=== PATIENT | female | born 1990 | race Caucasian/White ===

== ENCOUNTER 2019-07-15 21:34 | Inpatient (IN) | payer MEDICAID ==
[2019-07-15] MEDS ORDERED: Sodium Chloride 0.9% 1,000 ML IV ONE (21:42)
[2019-07-15] MEDS ORDERED: LORazepam 2 MG/ML SDV IVPUSH ONE (21:44)
[2019-07-15] MEDS ORDERED: Labetalol 100 MG/20 ML MDV IVPUSH ONE ×2 (21:45→23:11)
--- NOTE | 2019-07-15 21:59 | CT ---
INDICATION: Weakness and numbness. COMPARISON: None. TECHNIQUE: CT of the head without IV contrast. Coronal and sagittal reconstructions are provided. FINDINGS: No intracranial hemorrhage, mass effect, or evidence of acute infarct. No midline shift. No abnormal extra-axial fluid collections. Normal caliber ventricular system. Orbits and extraocular muscles are symmetric. Mild mucosal thickening in the left maxillary sinus. The paranasal sinuses and mastoid air cells are otherwise clear. No acute fracture. Soft tissues are unremarkable. IMPRESSION: : No acute intracranial findings. Please note that all CT scans at this facility use dose modulation, iterative reconstruction, and/or weight-based dosing when appropriate to reduce radiation dose to as low as reasonably achievable. Dictated by Brooke Joe MD @ Jul 15 2019 9:53PM Signed by Dr. Brooke Joe @ Jul 15 2019 9:59PM
[2019-07-15] MEDS ORDERED: Nitroprusside 50 MG in Dextrose 5% in Water 248 ML IV SCH ×2 (22:30)
[2019-07-15 22:36] LABS: BLOOD UREA NITROGEN,BUN 11 mg/dL (7.0-18.0); CARBON DIOXIDE,CO2 25.8 mmol/L (21.0-32.0); CHLORIDE,CL 102 mmol/L (98-107); GLUCOSE RANDOM 204 mg/dL (74-106); POTASSIUM,K 3.5 mmol/L (3.5-5.1); SODIUM,NA 138 mmol/L (136-145)
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
[2019-07-16] MEDS ORDERED: Labetalol 100 MG/20 ML MDV IVPUSH PRN (02:10)
[2019-07-16] MEDS ORDERED: Lisinopril 10 MG Tab PO ONE (02:11)
[2019-07-16] MEDS ORDERED: Sodium Chloride 0.9% 2.5 ML Syringe FLUSH PRN (02:45)
[2019-07-16] MEDS ORDERED: Sodium Chloride 0.9% 10 ML Syringe FLUSH PRN (02:45)
[2019-07-16] MEDS ORDERED: amLODIPine 5 MG Tab PO ONE (05:28)
[2019-07-16] MEDS ORDERED: Labetalol 100 MG/20 ML MDV IVPUSH ONE (05:29)
[2019-07-16 06:49] LABS: BLOOD UREA NITROGEN,BUN 9 mg/dL (7.0-18.0); CARBON DIOXIDE,CO2 27.1 mmol/L (21.0-32.0); CHLORIDE,CL 105 mmol/L (98-107); GLUCOSE RANDOM 197 mg/dL (74-106); POTASSIUM,K 3.9 mmol/L (3.5-5.1); SODIUM,NA 141 mmol/L (136-145)
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
[2019-07-16 08:32] LABS: HEMOGLOBIN A1C 7.7 % (4.5-6.2)
[2019-07-16] MEDS ORDERED: Aspirin 81 MG Tab.Chew PO SCH (09:00)
[2019-07-16] MEDS ORDERED: Hydrochlorothiazide 25 MG Tab PO SCH (09:00)
[2019-07-16] MEDS: Insulin Aspart 100 Units/ML 3 ML Pen SUBCUT SCH ×3 (09:17→18:14)
[2019-07-16] MEDS ORDERED: Lisinopril 10 MG Tab PO SCH (09:30)
[2019-07-16] MEDS ORDERED: amLODIPine 5 MG Tab PO SCH (09:30)
[2019-07-16] MEDS ORDERED: Gadobenate Dimeglumine 529 MG/ML 20 ML SDV IVPUSH STA (11:26)
--- NOTE | 2019-07-16 12:41 | US ---
Renal ultrasound with renal arterial Doppler: Multiple real-time images of the kidneys were obtained as well as duplex and color Doppler evaluation of the renal artery. Findings: Kidneys show no hydronephrosis or mass. Right kidney length is 10.4 cm and left kidney length is 12.2 cm. Maximum systolic velocity measurement within the right renal artery is 0.47 m/s and within the left renal artery is 0.80 m/s. Impression: 1. Nothing is appreciated to indicate hemodynamic significant stenosis within either renal artery. 2. Kidneys show no hydronephrosis or discrete mass. Diagnostic code #1 This report was dictated in MDT
--- NOTE | 2019-07-16 14:58 | MR ---
MRI brain (without and with intravenous contrast) Technique: T1 sagittal; T2, T2 FLAIR, T1 and diffusion axial; T1 coronal images were obtained. Postcontrast T1 axial, sagittal and coronal images were reviewed. Comparison: No prior intracranial imaging. Findings: Ventricles along with basal cisterns and sulci over the convexities are within normal limits for the patient's age. 2 areas of increased signal are seen within the periventricular white matter. Left parietal white matter signal shows abnormal diffusion which is compatible with an acute finding. No abnormal enhancement is seen within the brain parenchyma. Normal signal void is seen within the major cerebral arteries within the skull base. Impression: 1. 2 areas of increased signal within the periventricular white matter. One area on the left side shows increased diffusion compatible with relatively acute finding. Findings may represent early MS. No abnormal enhancement is seen on the left side and infection or tumor is felt unlikely as an etiology. Early white matter infarct is possible but seems less likely given the patient's age. Diagnostic code #3 This report was dictated in MDT
--- NOTE | 2019-07-16 14:58 | MR ---
MR angiogram of neck (with contrast) Technique: Multiple images were obtained of the neck. Intravenous contrast was utilized. Multiple MIP images were obtained in multiple projections. Findings: Both vertebral arteries are patent with dominant right vertebral artery. Patent smaller left vertebral artery is noted. Common carotid arteries are patent on both sides. Carotid bulbs appear within normal limits on both sides. Internal carotid arteries are patent on both sides. Both brachiocephalic and subclavian arteries are patent. Impression: 1. Innominate right vertebral artery with patent smaller left vertebral artery. 2. Neck vessels are otherwise unremarkable as described above. Diagnostic code #2 This report was dictated in MDT
--- NOTE | 2019-07-16 14:58 | MR ---
MR angiogram of brain Technique: [id number] MR angiogram study was obtained centered to the [place]. Reconstructed MIP images were obtained in multiple planes. Findings: Right vertebral artery is dominant over a small left vertebral artery. This is a normal variant. Basilar artery is patent into the posterior cerebral arteries. Internal carotid arteries are patent into the middle cerebral arteries and anterior cerebral arteries. No focal stenosis is seen. No discrete aneurysm is appreciated. Impression: 1. Dominant right vertebral artery which is a normal variant. 2. MR angiogram study of the brain is unremarkable. Diagnostic code #2 This report was dictated in MDT
[2019-07-16] MEDS ORDERED: Ondansetron 4 MG/2 ML SDV IVPUSH PRN (16:39)
[2019-07-16] MEDS ORDERED: Acetaminophen 325 MG Tab PO PRN (16:39)
--- NOTE | 2019-07-16 17:22 | PCM.SN.2 ---
- Free Text/Narrative Note: Called by the nurse practitioner for MedSurg and ICU. Patient is requiring an LP to rule out MS and stroke. Patient history complete. Consent obtained. Patient positioned sitting on the edge of the bed. Hat, mask, gloves and gown for [employer]. Betadine times 3. Sterile drape. Skin anesthetized with 1% lidocaine at L2-L3. 25g Penc[place] spinal needle passes easily on first attempt. Positive clear CSF. No blood and no parasthesia. 1 cc of fluid drawn off in each of the 4 tubes and sent to the lab. Needle withdrawn. Skin cleansed and bandage applied. Patient tolerated procedure well.
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
[2019-07-16] MEDS ORDERED: atorvaSTATin 40 MG Tab PO SCH (21:00)
--- NOTE | 2019-07-17 06:26 | PCM48HPAN ---
Post Anesthesia Note - EVALUATION WITHIN 48HRS OF ANESTHETIC Vital Signs in Normal Range: Yes Patient Participated in Evaluation: Yes Respiratory Function Stable: Yes Airway Patent: Yes Cardiovascular Function Stable: Yes Hydration Status Stable: Yes Pain Control Satisfactory: Yes Nausea and Vomiting Control Satisfactory: Yes Mental Status Recovered: Yes Vital Signs: Last Vital Signs Temp 36.3 C 07/17/19 04:00 Pulse 88 07/17/19 04:00 Resp 18 07/17/19 04:00 BP 163/95 H 07/17/19 04:00 Pulse Ox 96 07/17/19 04:00 - COMMENTS/OBSERVATIONS Free Text/Narrative:: awaiting MRI and test results
[2019-07-17] MEDS: Insulin Aspart 100 Units/ML 3 ML Pen SUBCUT SCH ×2 (06:36→11:48)
[2019-07-17 06:45] LABS: BLOOD UREA NITROGEN,BUN 11 mg/dL (7.0-18.0); CARBON DIOXIDE,CO2 24.9 mmol/L (21.0-32.0); CHLORIDE,CL 105 mmol/L (98-107); GLUCOSE RANDOM 151 mg/dL (74-106); POTASSIUM,K 3.3 mmol/L (3.5-5.1); SODIUM,NA 140 mmol/L (136-145)
[2019-07-17] MEDS ORDERED: Aspirin 325 MG Tab.EC PO SCH (09:00)
[2019-07-17] MEDS ORDERED: Lisinopril 10 MG Tab PO SCH ×2 (09:00→09:15)
[2019-07-17] MEDS ORDERED: Hydrochlorothiazide 25 MG Tab PO SCH (09:45)
[2019-07-17] MEDS ORDERED: Gadobenate Dimeglumine 529 MG/ML 20 ML SDV IVPUSH STA (09:49)
--- NOTE | 2019-07-17 11:21 | MR ---
MRI lumbar spine (without and with intravenous contrast) Technique: T1, T2 and T1 fat-suppressed postcontrast axial images were obtained from above the T12-L1 disc through the L5-S1 disc. T1, T2, fat suppressed inversion recovery and T1 fat-suppressed postcontrast sagittal images were obtained. Findings: Vertebral body heights and disc spaces are maintained. No significant disc bulge or disc herniation is seen. No abnormal enhancement is seen. No central canal stenosis or neural foraminal stenosis is seen. Conus medullaris and cauda equina show no abnormal signal or mass. No abnormal enhancement is seen. Impression: 1. No abnormality is identified on MRI study of the lumbar spine. Diagnostic code #1 This report was dictated in MDT
--- NOTE | 2019-07-17 11:24 | MR ---
MRI thoracic spine (without and with intravenous contrast) Technique: T2 and T1 fat-suppressed postcontrast axial images were obtained in 2 sets through the thoracic spine. T1, T2, fat suppressed inversion recovery and T1 fat-suppressed postcontrast sagittal images were obtained. Comparison: No prior thoracic spine imaging. Findings: Vertebral body heights and disc spaces are maintained. Posterior discs are preserved. No central canal stenosis or neural foraminal stenosis is seen. Thoracic cord shows no abnormal signal. No abnormal enhancement is seen within the thoracic cord or within the vertebral bodies. No bone marrow edema is identified. Impression: 1. No abnormality is appreciated on MRI study of the thoracic spine. Diagnostic code #1 This report was dictated in MDT
--- NOTE | 2019-07-17 12:18 | MR ---
MRI cervical spine (without and with intravenous contrast) Technique: T2 weighted and FFE axial as well as T1 postcontrast fat-suppressed axial images were obtained from above the C2-3 disc inferiorly through the T1-2 disc. T1, T2, fat suppressed inversion recovery and T1 fat-suppressed postcontrast sagittal images were obtained. Limitations: Motion artifact is noted on multiples sequences. Comparison: No previous cervical spine imaging. Findings: Vertebral body heights and disc spaces are preserved. No central canal stenosis or neural foraminal stenosis is seen. Cervical cord shows no abnormal signal or mass. No abnormal enhancement is seen. Mild scoliosis is noted. Impression: 1. Mild scoliosis. 2. No additional abnormality is seen on MRI study of the cervical spine (study slightly limited due to motion). Diagnostic code #2 This report was dictated in MDT
[2019-07-17] MEDS ORDERED: amLODIPine 5 MG Tab PO SCH (13:45)
--- NOTE | 2019-07-17 14:01 | PCM.DCSUM1 ---
Discharge Summary - Hospital Course Brief History: This 29 year old female with no significant pmh except for migraines without aura presented to the ED with complaints of R sided weakness that started at supper. She reports her and her boyfriend were sitting at a restaurant to eat and she felt flushed and like she needed to get some air. She went out to the truck and felt like the R side of her body was tingling and has a numb R face. She felt like her R arm was very heavy and became very panicked. She denies headache, visual concerns. No speech or swallowing concerns. She felt like her R leg was very heavy, but denies trouble walking, but feels off when walking. She denied chest pain or palpitations. No abdominal pain or dysuria. No fevers or chills. She otherwise has been feeling well prior to this. She denies travel. She denies tobacco use, no alcohol use and no recreational drug use. She is not aware of family health history. In the ED no leukocytosis noted. Hgb 10.8 BMP WNL other than glucose elevated at 204, Troponin negative. TSH 1.[address] obtained which was negative. Blood pressure extremely elevated 230/110s, she was started on Nitroprusside drip in the ED which normlaized BP quickly. She was admitted for hypertensive emergency and monitored on Telemetry. Diagnosis: Stroke: No - Discharge Data Discharge Date: 07/17/19 Discharge Disposition: Home, Self-Care 01 Condition: Good - Referral to Home Health Primary Care Physician: PCP None - Discharge Diagnosis/Problem(s) (1) Right sided weakness SNOMED Code(s): 404817818 ICD Code: R53.1 - WEAKNESS Status: Acute (2) Hx of migraines SNOMED Code(s): 934312901 ICD Code: Z86.69 - PERSONAL HISTORY OF DIS OF THE NERVOUS SYS AND SENSE ORGANS Status: Acute (3) Hypertensive urgency SNOMED Code(s): 003087591 ICD Code: I16.0 - HYPERTENSIVE URGENCY Status: Acute (4) CVA (cerebral vascular accident) SNOMED Code(s): 329532159 ICD Code: I63.9 - CEREBRAL INFARCTION, UNSPECIFIED Status: Suspected Qualifiers: Laterality of affected vessel: left - Patient Summary/Data Consults: Consultations 07/16/19 08:35 OT Evaluation and Treatment [CONS] Routine PT Evaluation and Treatment [CONS] Routine 07/16/19 11:40 Consult to [employer] [Consult to Diabetic Nurse Specialist] [CONS] Routine Hospital Course: admitting Diagnoses: R sided weakness HTN urgency Discharge Diagnoses: Suspected CVA vs MS HTN DM Type 2 Maria Del Carmen was admitted secondary to R sided weakness which started suddenly, on admission she was noted to have HTN urgency along with R sided weakness. Head CT negative further imaging including MRI showed possible infarct vs MS. Dr Pickard, Neurology, reviewed imaging and agreed with CVA workup and treatment , but recommended LP for MS workup as well as imaging of spine. LP studies and hypercoagulable work up pending as well. Family has history of blood clots causing significant health concerns. BP was controlled with Lisinopril HCTZ and Amlodipine. She was also noted to have new onset DM. She was counseled on blood sugar control. She was also started on Metformin as well as ASA and statin therapy. She was evaluated by PT and OT. OT therapy as outpatient as well for R upper extremity weakness. She will be discharged home today, she will have follow up with PCP and Dr Pickard. She is to return to ED or clinic if concerns should arise. - Patient Instructions Diet: Heart Healthy Diet, Diabetic Diet Activity: No Strenuous Activities Driving: Do Not Drive Showering/Bathing: May Shower Notify Provider of: Fever, Increased Pain, Swelling and Redness, Drainage, Nausea and/or Vomiting Other/Special Instructions: Occupational therapy as outpatient for R arm weakness. Monitor Blood pressure at home, if top number below 100, call primary care provider. Hold medications for that day. Keep log of Blood pressures at home to bring to follow up appointments. - Discharge Plan *PRESCRIPTION DRUG MONITORING PROGRAM REVIEWED*: Not Applicable *COPY OF PRESCRIPTION DRUG MONITORING REPORT IN PATIENT JOY: Not Applicable Prescriptions/Med Rec: amLODIPine Besylate [Norvasc] 10 mg PO DAILY #30 tablet Aspirin [Ecotrin EC] 325 mg PO DAILY #100 tab.ec atorvaSTATin [Lipitor] 80 mg PO BEDTIME #60 tablet Hydrochlorothiazide/Lisinopril [Lisinopril-HCTZ 20-12.5 MG] 2 tab PO DAILY #60 tab metFORMIN HCl [Metformin HCl] 500 mg PO DAILY #30 tablet Home Medications: Home Meds Aspirin [Ecotrin EC] 325 mg PO DAILY #100 tab.ec 07/17/19 [Rx] Hydrochlorothiazide/Lisinopril [Lisinopril-HCTZ 20-12.5 MG] 2 tab PO DAILY #60 tab 07/17/19 [Rx] amLODIPine Besylate [Norvasc] 10 mg PO DAILY #30 tablet 07/17/19 [Rx] atorvaSTATin [Lipitor] 80 mg PO BEDTIME #60 tablet 07/17/19 [Rx] metFORMIN HCl [Metformin HCl] 500 mg PO DAILY #30 tablet 07/17/19 [Rx] Patient Handouts: Stroke Prevention, Obiw-eb-[id number], Weakness, Nori-ff-Hiwt, Ischemic Stroke, Lobm-bu-Hyqz, Hydrochlorothiazide, HCTZ; Lisinopril tablets, Hypertension, Adult, Jwsh-[id number], Atorvastatin tablets, Amlodipine tablets, Metformin tablets, Aspirin, ASA oral tablets Referrals: Aria Pickard MD [Physician] - 07/26/19 10:00 am Ya Medrano MD [Resident] - 07/25/19 2:30 pm - Discharge Summary/Plan Comment DC Time >30 min.: No - Patient Data Vitals - Most Recent: Last Vital Signs Temp 98.2 F 07/17/19 11:33 Pulse 93 07/17/19 11:33 Resp 16 07/17/19 11:33 BP 173/108 H 07/17/19 11:33 Pulse Ox 97 07/17/19 11:33 Weight - Most Recent: 88.6 kg I&O - Last 24 hours: Intake & Output 07/16/19 07/17/19 07/17/19 22:59 06:59 14:59 Intake Total 700 1350 Output Total 1750 1850 Balance -1050 -500 Lab Results - Last 24 hrs: Laboratory Results - last 24 hr 07/16/19 07/16/19 07/16/19 Range/Units 17:07 17:07 18:02 WBC (4.0-11.0) K/uL RBC (4.30-5.90) M/uL Hgb (12.0-16.0) g/dL Hct (36.0-46.0) % MCV (80.0-98.0) fL MCH (27.0-32.0) pg MCHC (31.0-37.0) g/dL RDW Std Deviation (28.0-62.0) fl RDW Coeff of Dequan (11.0-15.0) % Plt Count (150-400) K/uL MPV (7.40-12.00) fL Neut % (Auto) (48.0-80.0) % Lymph % (Auto) (16.0-40.0) % [place]ud[place]eth % (Auto) (0.0-15.0) % Eos % (Auto) (0.0-7.0) % Baso % (Auto) (0.0-1.5) % Neut # (Auto) (1.4-5.7) K/uL Lymph # (Auto) (0.6-2.4) K/uL Hudspeth # (Auto) (0.0-0.8) K/uL Eos # (Auto) (0.0-0.7) K/uL Baso # (Auto) (0.0-0.1) K/uL Nucleated RBC % /100WBC Nucleated RBCs # K/uL Smear Path Review Absolute Retic (20-80) K/uL Percent Retic (0.5-1.5) % Immature Retic Fraction % Sodium (136-145) mmol/L Potassium (3.5-5.1) mmol/L Chloride (98-107) mmol/L Carbon Dioxide (21.0-32.0) mmol/L BUN (7.0-18.0) mg/dL Creatinine (0.6-1.0) mg/dL Est Cr Clr Drug Dosing mL/min Estimated GFR (MDRD) ml/min Glucose (74-106) mg/dL POC Glucose 137 H (60-110) mg/dL Calcium (8.5-10.1) mg/dL Iron (50-175) ug/dL TIBC (250-450) ug/dL % Saturation (20-55) % Transferrin Ferritin (8-252) ng/mL Vitamin B12 (193-986) pg/mL Folate (8.60-58.90) ng/mL CSF Appearance CLEAR CSF Color COLORLESS CSF WBC 1 (0-5) /uL CSF RBC 9 H (0-0) /uL CSF Mononuclear Cells 100.0 % CSF Polymorphonuclear 0.0 % CSF Glucose 93.0 H (40-70) mg/dL CSF Total Protein 37 (15-45) mg/dL 07/17/19 07/17/19 07/17/19 Range/Units 06:00 06:00 06:00 WBC 9.83 (4.0-11.0) K/uL RBC 4.72 4.67 (4.30-5.90) M/uL Hgb 9.8 L (12.0-16.0) g/dL Hct 33.6 L (36.0-46.0) % MCV 71.2 L (80.0-98.0) fL MCH 20.8 L (27.0-32.0) pg MCHC 29.2 L (31.0-37.0) g/dL RDW Std Deviation 39.7 (28.0-62.0) fl RDW Coeff of Dequan 15 (11.0-15.0) % Plt Count 270 (150-400) K/uL MPV 10.30 (7.40-12.00) fL Neut % (Auto) 68.1 (48.0-80.0) % Lymph % (Auto) 21.4 (16.0-40.0) % Hudspeth % (Auto) 9.2 (0.0-15.0) % Eos % (Auto) 1.2 (0.0-7.0) % Baso % (Auto) 0.1 (0.0-1.5) % Neut # (Auto) 6.7 H (1.4-5.7) K/uL Lymph # (Auto) 2.1 (0.6-2.4) K/uL Hudspeth # (Auto) 0.9 H (0.0-0.8) K/uL Eos # (Auto) 0.1 (0.0-0.7) K/uL Baso # (Auto) 0.0 (0.0-0.1) K/uL Nucleated RBC % 0.0 /100WBC Nucleated RBCs # 0 K/uL Smear Path Review Absolute Retic 86.40 H (20-80) K/uL Percent Retic 1.9 H (0.5-1.5) % Immature Retic Fraction 26 % Sodium 140 (136-145) mmol/L Potassium 3.3 L (3.5-5.1) mmol/L Chloride 105 (98-107) mmol/L Carbon Dioxide 24.9 (21.0-32.0) mmol/L BUN 11 (7.0-18.0) mg/dL Creatinine 0.8 (0.6-1.0) mg/dL Est Cr Clr Drug Dosing 92.53 mL/min Estimated GFR (MDRD) > 60.0 ml/min Glucose 151 H (74-106) mg/dL POC Glucose (60-110) mg/dL Calcium 8.4 L (8.5-10.1) mg/dL Iron (50-175) ug/dL TIBC (250-450) ug/dL % Saturation (20-55) % Transferrin Ferritin (8-252) ng/mL Vitamin B12 (193-986) pg/mL Folate (8.60-58.90) ng/mL CSF Appearance CSF Color CSF WBC (0-5) /uL CSF RBC (0-0) /uL CSF Mononuclear Cells % CSF Polymorphonuclear % CSF Glucose (40-70) mg/dL CSF Total Protein (15-45) mg/dL 07/17/19 07/17/19 07/17/19 Range/Units 06:00 06:00 06:00 WBC (4.0-11.0) K/uL RBC (4.30-5.90) M/uL Hgb (12.0-16.0) g/dL Hct (36.0-46.0) % MCV (80.0-98.0) fL MCH (27.0-32.0) pg MCHC (31.0-37.0) g/dL RDW Std Deviation (28.0-62.0) fl RDW Coeff of Dequan (11.0-15.0) % Plt Count (150-400) K/uL MPV (7.40-12.00) fL Neut % (Auto) (48.0-80.0) % Lymph % (Auto) (16.0-40.0) % Hudspeth % (Auto) (0.0-15.0) % Eos % (Auto) (0.0-7.0) % Baso % (Auto) (0.0-1.5) % Neut # (Auto) (1.4-5.7) K/uL Lymph # (Auto) (0.6-2.4) K/uL Hudspeth # (Auto) (0.0-0.8) K/uL Eos # (Auto) (0.0-0.7) K/uL Baso # (Auto) (0.0-0.1) K/uL Nucleated RBC % /100WBC Nucleated RBCs # K/uL Smear Path Review SENT TO PATHOLOGY Absolute Retic (20-80) K/uL Percent Retic (0.5-1.5) % Immature Retic Fraction % Sodium (136-145) mmol/L Potassium (3.5-5.1) mmol/L Chloride (98-107) mmol/L Carbon Dioxide (21.0-32.0) mmol/L BUN (7.0-18.0) mg/dL Creatinine (0.6-1.0) mg/dL Est Cr Clr Drug Dosing mL/min Estimated GFR (MDRD) ml/min Glucose (74-106) mg/dL POC Glucose (60-110) mg/dL Calcium (8.5-10.1) mg/dL Iron 22 L (50-175) ug/dL TIBC 395 (250-450) ug/dL % Saturation 5.57 L (20-55) % Transferrin 276.5 Ferritin 3 L (8-252) ng/mL Vitamin B12 301 (193-986) pg/mL Folate 12.20 (8.60-58.90) ng/mL CSF Appearance CSF Color CSF WBC (0-5) /uL CSF RBC (0-0) /uL CSF Mononuclear Cells % CSF Polymorphonuclear % CSF Glucose (40-70) mg/dL CSF Total Protein (15-45) mg/dL 07/17/19 07/17/19 Range/Units 06:03 11:48 WBC (4.0-11.0) K/uL RBC (4.30-5.90) M/uL Hgb (12.0-16.0) g/dL Hct (36.0-46.0) % MCV (80.0-98.0) fL MCH (27.0-32.0) pg MCHC (31.0-37.0) g/dL RDW Std Deviation (28.0-62.0) fl RDW Coeff of Dequan (11.0-15.0) % Plt Count (150-400) K/uL MPV (7.40-12.00) fL Neut % (Auto) (48.0-80.0) % Lymph % (Auto) (16.0-40.0) % Hudspeth % (Auto) (0.0-15.0) % Eos % (Auto) (0.0-7.0) % Baso % (Auto) (0.0-1.5) % Neut # (Auto) (1.4-5.7) K/uL Lymph # (Auto) (0.6-2.4) K/uL Hudspeth # (Auto) (0.0-0.8) K/uL Eos # (Auto) (0.0-0.7) K/uL Baso # (Auto) (0.0-0.1) K/uL Nucleated RBC % /100WBC Nucleated RBCs # K/uL Smear Path Review Absolute Retic (20-80) K/uL Percent Retic (0.5-1.5) % Immature Retic Fraction % Sodium (136-145) mmol/L Potassium (3.5-5.1) mmol/L Chloride (98-107) mmol/L Carbon Dioxide (21.0-32.0) mmol/L BUN (7.0-18.0) mg/dL Creatinine (0.6-1.0) mg/dL Est Cr Clr Drug Dosing mL/min Estimated GFR (MDRD) ml/min Glucose (74-106) mg/dL POC Glucose 148 H 138 H (60-110) mg/dL Calcium (8.5-10.1) mg/dL Iron (50-175) ug/dL TIBC (250-450) ug/dL % Saturation (20-55) % Transferrin Ferritin (8-252) ng/mL Vitamin B12 (193-986) pg/mL Folate (8.60-58.90) ng/mL CSF Appearance CSF Color CSF WBC (0-5) /uL CSF RBC (0-0) /uL CSF Mononuclear Cells % CSF Polymorphonuclear % CSF Glucose (40-70) mg/dL CSF Total Protein (15-45) mg/dL Med Orders - Current: Current Medications Acetaminophen (Tylenol) 650 mg PO Q4H PRN PRN Reason: Pain (Mild 1-3)/fever Amlodipine Besylate (Norvasc) 10 mg PO DAILY [facility] Aspirin (Ecotrin) 325 mg PO DAILY [facility] Last Admin: 07/17/19 09:21 Dose: 325 mg Atorvastatin Calcium (Lipitor) 80 mg PO BEDTIME [facility] Last Admin: 07/16/19 20:02 Dose: 80 mg Hydrochlorothiazide (Hydrochlorothiazide) 25 mg PO DAILY [facility] Last Admin: 07/17/19 09:49 Dose: 25 mg Insulin Aspart (Novolog) 0 unit SUBCUT TIDAC [facility]; Protocol Last Admin: 07/17/19 11:48 Dose: Not Given Labetalol HCl (Normodyne) 20 mg IVPUSH Q4H PRN PRN Reason: Hypertension Last Admin: 07/16/19 02:28 Dose: 20 mg Lisinopril (Prinivil) 40 mg PO DAILY [facility] Last Admin: 07/17/19 09:22 Dose: 40 mg Ondansetron HCl (Zofran) 4 mg IVPUSH Q4H PRN PRN Reason: Nausea Sodium Chloride (Saline Flush) 10 ml FLUSH ASDIRECTED PRN PRN Reason: Keep Vein Open Sodium Chloride (Saline Flush) 2.5 ml FLUSH ASDIRECTED PRN PRN Reason: Keep Vein Open Discontinued Medications Amlodipine Besylate (Norvasc) 10 mg PO ONETIME ONE Stop: 07/16/19 05:29 Last Admin: 07/16/19 05:35 Dose: 10 mg Amlodipine Besylate (Norvasc) 10 mg PO DAILY [facility] Last Admin: 07/16/19 09:00 Dose: Not Given Aspirin (Aspirin) 81 mg PO DAILY [facility] Last Admin: 07/16/19 09:15 Dose: 81 mg Gadobenate Dimeglumine (Multihance) 20 ml IVPUSH ONETIME STA Stop: 07/16/19 11:27 Last Admin: 07/16/19 12:59 Dose: 17 ml Gadobenate Dimeglumine (Multihance) 20 ml IVPUSH ONETIME STA Stop: 07/17/19 09:50 Last Admin: 07/17/19 10:12 Dose: 17 ml Hydrochlorothiazide (Hydrochlorothiazide) 25 mg PO DAILY [facility] Sodium Chloride (Normal Saline) 1,000 mls @ 1,000 mls/hr IV .Bolus ONE Stop: 07/15/19 22:41 Last Admin: 07/15/19 22:09 Dose: 1,000 mls/hr Sodium Nitroprusside 50 mg/ (Dextrose/Water) 250 mls @ 79.74 mls/hr IV TITRATE JIMMIE; Protocol Last Titration: 07/16/19 01:05 Dose: 0 mcg/kg/min, 0 mls/hr Labetalol HCl (Normodyne) 20 mg IVPUSH ONETIME ONE; Protocol Stop: 07/15/19 21:46 Last Admin: 07/15/19 22:03 Dose: 20 mg Labetalol HCl (Normodyne) 10 mg IVPUSH ONETIME ONE; Protocol Stop: 07/15/19 23:12 Last Admin: 07/15/19 23:12 Dose: 10 mg Labetalol HCl (Normodyne) 10 mg IVPUSH ONETIME ONE; Protocol Stop: 07/16/19 05:30 Last Admin: 07/16/19 05:35 Dose: 10 mg Lisinopril (Prinivil) 20 mg PO ONETIME ONE Stop: 07/16/19 02:12 Last Admin: 07/16/19 02:39 Dose: 20 mg Lisinopril (Prinivil) 20 mg PO DAILY [facility]IMMIE Lisinopril (Prinivil) 40 mg PO DAILY [facility]IM[facility] Last Admin: 07/16/19 09:00 Dose: Not Given Lorazepam (Ativan) 1 mg IVPUSH ONETIME ONE Stop: 07/15/19 21:45 Last Admin: 07/15/19 21:59 Dose: 1 mg - Exam General: Reports: Alert, Oriented, Cooperative, No Acute Distress Lungs: Reports: Clear to Auscultation, Normal Respiratory Effort Cardiovascular: Reports: Regular Rate, Regular Rhythm GI/Abdominal Exam: Normal Bowel Sounds, Soft, Non-Tender Back Exam: Reports: Normal Inspection, Full Range of Motion Extremities: Normal Inspection, Normal Range of Motion, Non-Tender Neurological: Denies: Strength Equal Bilateral (R sided arm weakness 2/5) Psy/Mental Status: Reports: Alert, Normal Affect, Normal Mood
--- NOTE | 2019-07-18 14:21 | ECHO ---
EXAM DATE: 07/16/19 PATIENT'S AGE: 29 The ECHO report can be seen in this patient's EMR (Electronic Medical Record) in the REPORTS section. The report has also been scanned into PACS. [email or web address]
== END 2019-07-17 15:30 | disposition home or self-care (01) | DRG 65 ==
LOC: MW.ED 21:34 → MW.ICU 07-16 01:00
PROVIDERS: ADMIT Student in an Organized Health Care Education/Training Program; ATTEND Student in an Organized Health Care Education/Training Program
PROC: 009U3ZX Drainage of Spinal Canal, Percutaneous Approach, Diagnostic (ICD-10-PCS; principal; 2019-07-16)
DX: I63.9 Cerebral infarction, unspecified (principal); I16.1 Hypertensive emergency; G81.91 Hemiplegia, unspecified affecting right dominant side; E11.9 Type 2 diabetes mellitus without complications; G35 Multiple sclerosis; G43.909 Migraine, unspecified, not intractable, without status migrainosus; R29.702 NIHSS score 2; Z86.69 Personal history of other diseases of the nervous system and sense organs
CPT/HCPCS: 36415; 62270; 70450; 70450-26; 70544; 70544-26; 70548; 70548-26; 70553; 70553-26; 72156; 72156-26; 72157; 72157-26; 72158; 72158-26; 80048; 80053; 80061; 81025; 81241; 82607; 82728; 82746; 82945; 82962; 83036; 83550; 83735; 84100; 84157; 84443; 84484; 85025; 85045; 85302; 85303; 85306; 85610; 85611; 85613; 85670; 85730; 85732; 86146; 86147; 88104; 89050; 93005; 93306; 93975; 93975-26; 96361; 96365; 96375; 96376; 97161-GP; 99283; 99285-25; A9270-GY; A9577; J1815-GY; J2060; J3490; J7030; J7060; U0002

== ENCOUNTER 2019-07-18 21:47 | Observation (INO) | payer MEDICAID, OTHER ==
[2019-07-18] MEDS ORDERED: Sodium Chloride 0.9% 10 ML SDV IV PRN (22:03)
[2019-07-18] MEDS ORDERED: Sodium Chloride 0.9% 2.5 ML Syringe FLUSH PRN (22:03)
[2019-07-18] MEDS ORDERED: Sodium Chloride 0.9% 10 ML Syringe FLUSH PRN (22:03)
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
[2019-07-18 22:29] LABS: BLOOD UREA NITROGEN,BUN 21 mg/dL (7.0-18.0); CARBON DIOXIDE,CO2 24.3 mmol/L (21.0-32.0); CHLORIDE,CL 99 mmol/L (98-107); GLUCOSE RANDOM 157 mg/dL (74-106); POTASSIUM,K 3.5 mmol/L (3.5-5.1); SODIUM,NA 137 mmol/L (136-145)
--- NOTE | 2019-07-18 22:53 | CT ---
Head CT Technique: Multiple axial sections through the brain were obtained. Intravenous contrast was not utilized. Comparison: Prior head CT study of 07/15/19. Prior MRI brain of 07/16/19 is also available. Findings: Ventricles along with basal cisterns and sulci over the convexities are within normal limits for the patient's age. Low density finding noted within the left periventricular white matter which correlates to an area of increased signal on previous MRI of 07/16/19. No other abnormal parenchymal densities are seen. No evidence of intracranial hemorrhage. No midline shift or mass-effect is seen. Bone window settings show no acute change within the visualized paranasal sinuses are visualized mastoid sinuses. No acute calvarial finding is seen. Impression: 1. Low density within the left periventricular white matter. This is seen on prior MRI study but not identified on earlier head CT exam. Given this rapid change between the CT exams, white matter infarct versus more aggressive MS (tumefactive) is within the differential. 2. No other abnormality is appreciated on noncontrast head CT study. Diagnostic code #3 This report was dictated in MDT
[2019-07-19] MEDS ORDERED: methylPREDNISolone Sodium Succinate 1,000 MG/8 ML SDV IV ONE ×2 (01:46→03:15)
[2019-07-19] MEDS: atorvaSTATin 40 MG Tab PO SCH ×2 (01:59→09:25)
[2019-07-19] MEDS: Aspirin 325 MG Tab PO SCH ×2 (02:00→09:33)
[2019-07-19] MEDS ORDERED: methylPREDNISolone Sodium Succinate 125 MG/2 ML SDV ONE (02:22)
[2019-07-19] MEDS ORDERED: methylPREDNISolone Sod Succ 1,000 MG in Sodium Chloride 0.9% 100 ML IV ONE ×2 (02:30→03:30)
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
[2019-07-19] MEDS ORDERED: Sodium Chloride 0.9% 1,000 ML IV ONE (08:48)
[2019-07-19 08:57] LABS: CARBON DIOXIDE,CO2 24.5 mmol/L (21.0-32.0); POTASSIUM,K 4.1 mmol/L (3.5-5.1)
[2019-07-19] MEDS ORDERED: HYDROCHLOROTHIAZIDE PO SCH (09:00)
[2019-07-19] MEDS ORDERED: metFORMIN 500 MG Tab PO SCH (09:00)
[2019-07-19] MEDS ORDERED: [UNRECOGNIZED DRUG - OTHER] PO SCH (09:00)
[2019-07-19] MEDS ORDERED: LISINOPRIL PO SCH (09:00)
[2019-07-19] MEDS: Insulin Aspart 100 Units/ML 3 ML Pen SUBCUT SCH ×3 (09:24→17:50)
[2019-07-19] MEDS: amLODIPine 5 MG Tab PO SCH (09:26)
[2019-07-19] MEDS: Aspirin 325 MG Tab.EC PO SCH (09:28)
[2019-07-19] MEDS: Sodium Chloride 0.9% 1,000 ML IV SCH ×2 (14:15→21:30)
[2019-07-19] MEDS ORDERED: atorvaSTATin 40 MG Tab PO SCH (21:00)
[2019-07-19] MEDS ORDERED: methylPREDNISolone Sod Succ 1,000 MG in Sodium Chloride 0.9% 100 ML IV SCH (21:00)
[2019-07-20] MEDS: Sodium Chloride 0.9% 1,000 ML IV SCH (05:32)
[2019-07-20 06:17] LABS: BLOOD UREA NITROGEN,BUN 25 mg/dL (7.0-18.0); CARBON DIOXIDE,CO2 22.2 mmol/L (21.0-32.0); CHLORIDE,CL 106 mmol/L (98-107); GLUCOSE RANDOM 271 mg/dL (74-106); POTASSIUM,K 4.1 mmol/L (3.5-5.1); SODIUM,NA 138 mmol/L (136-145)
[2019-07-20] MEDS: Insulin Aspart 100 Units/ML 3 ML Pen SUBCUT SCH ×2 (07:13→12:02)
[2019-07-20] MEDS: amLODIPine 5 MG Tab PO SCH (08:39)
[2019-07-20] MEDS: atorvaSTATin 40 MG Tab PO SCH (08:39)
[2019-07-20] MEDS: Aspirin 325 MG Tab.EC PO SCH (08:40)
[2019-07-20] MEDS ORDERED: methylPREDNISolone Sod Succ 1,000 MG in Sodium Chloride 0.9% 100 ML IV SCH (12:00)
--- NOTE | 2019-07-20 12:30 | PCM.DCSUM1 ---
Discharge Summary - Hospital Course Brief History: This 29 year old female with pmh of R hand weakness, recently discharge after possible CVA or MS. Workup still pending. She reports last night she started having a change in symptoms, she felt actual numbness to top R lip and to her R hand, which had no happened before. She became scared and came to the ED. SHe has been tkaing BP medications. She reports she got very fatigued with this episode and her boyfriend had to carry her into the house. She denies visual concerns and no chest pain or SOB. No fevers or chills. In the ED leukocytosis noted, along with slight CIERA BUN 21 and Cr 1.3. head CT obtained which showed low density within the left periventricular what matter, which was seen on previous MRI. "given rapid change white matter infarct vs aggressive MR is within the differential". She was given 1000 mg Solumedrol and admitted for observation. Diagnosis: Stroke: No - Discharge Data Discharge Date: 07/20/19 Discharge Disposition: Home, Self-Care 01 Condition: Good - Referral to Home Health Primary Care Physician: PCP None - Discharge Diagnosis/Problem(s) (1) Numbness of right hand SNOMED Code(s): 180790627 ICD Code: R20.0 - ANESTHESIA OF SKIN Status: Acute Current Visit: Yes (2) Hx of migraines SNOMED Code(s): 401789092 ICD Code: Z86.69 - PERSONAL HISTORY OF DIS OF THE NERVOUS SYS AND SENSE ORGANS Status: Acute Current Visit: No (3) Right sided weakness SNOMED Code(s): 949808330 ICD Code: R53.1 - WEAKNESS Status: Acute Current Visit: No (4) Multiple sclerosis SNOMED Code(s): 52376380 ICD Code: G35 - MULTIPLE SCLEROSIS Status: Suspected Current Visit: Yes - Patient Summary/Data Consults: Consultations 07/19/19 01:31 PT Evaluation and Treatment [CONS] Routine 07/19/19 08:52 Consult to Occupational Therapy [OT Evaluation and Treatment] [CONS] Routine Hospital Course: Admitting Diagnoses: R hand parathesia, weakness Discharge Diagnoses: Suspected MS vs CVA Maria Del Carmen was admitted with worsening numbness to R hand, she was recently discharged home with similar symptoms. she has thorough work up for CVA and MS with MRI brain as well as MRA head neck and spine. She also had LP to fully evauate for MS. Dr ho, neurology was consulted over the phone, she reviewed CT from this admission. She agrees with IV Solumedrol x 5 days then taper to PO along with follow up with her. She feels this may be MS, but imaging is not as clear. Awaiting further lab studies which are send outs. She has follow up next week with Dr Ho as well as to setup PCP. She is to continue Amlodipine. Monitor BP, due to CIERA on admission, will hold ASHLEY and HCTZ for now. PCP may need to restart these is pressures remain elevated. SHe is to continue ASA and statin along with metformin. She will return to Hospital Tuesday and Tuesday for infusion therapy then start Tuesday with oral prednisone taper, 60 mg x 2 days, then 40, 30 20, 10 all for 2 days each. then Stop. She is to return to ED or clinic if concerns should arise. OT did evaluate her during her stay and provided exercises. She has outpatient follow up with them as well. - Patient Instructions Diet: Heart Healthy Diet Activity: As Tolerated, No Strenuous Activities, Rest and Relax Today Showering/Bathing: May Shower Notify Provider of: Fever, Increased Pain, Swelling and Redness, Drainage, Nausea and/or Vomiting Other/Special Instructions: Come to ED for IV therapy on Tuesday and Tuesday they will direct you to the Med/Surg floor. Protect IV at home. - Discharge Plan *PRESCRIPTION DRUG MONITORING PROGRAM REVIEWED*: Not Applicable *COPY OF PRESCRIPTION DRUG MONITORING REPORT IN PATIENT JOY: Not Applicable Prescriptions/Med Rec: methylPREDNISolone Sod Succ [Solu-MEDROL] 1,000 mg IV Q24H #2 sdv predniSONE 10 - 60 mg PO .TAPER #32 tab Home Medications: Home Meds Aspirin [Ecotrin EC] 325 mg PO DAILY #100 tab.ec 07/17/19 [Rx] amLODIPine Besylate [Norvasc] 10 mg PO DAILY #30 tablet 07/17/19 [Rx] metFORMIN HCl [Metformin HCl] 500 mg PO DAILY #30 tablet 07/17/19 [Rx] atorvaSTATin [Lipitor] 80 mg PO DAILY 07/19/19 [History] Hydrochlorothiazide/Lisinopril [Lisinopril/HCTZ 20-12.5 MG] 2 tab PO DAILY #60 tab 07/20/19 [Rx] methylPREDNISolone Sod Succ [Solu-MEDROL] 1,000 mg IV Q24H #2 sdv 07/20/19 [Rx] predniSONE 10 - 60 mg PO .TAPER #32 tab 07/20/19 [Rx] Oxygen Therapy Mode: Room Air Patient Handouts: Methylprednisolone Solution for Injection, Prednisone tablets , Paresthesia, [id number] Referrals: Aria Ho MD [Physician] - 07/26/19 10:00 am Ya Medrano MD [Resident] - 07/25/19 2:30 pm - Discharge Summary/Plan Comment DC Time >30 min.: No - Patient Data Vitals - Most Recent: Last Vital Signs Temp 96.9 F 07/20/19 08:00 Pulse 92 07/20/19 08:00 Resp 18 07/20/19 08:00 BP 167/89 H 07/20/19 08:39 Pulse Ox 99 07/20/19 08:00 Weight - Most Recent: 86.228 kg I&O - Last 24 hours: Intake & Output 07/19/19 07/20/19 07/20/19 22:59 06:59 14:59 Intake Total 1480 2128 Output Total 1100 2000 Balance 380 128 Lab Results - Last 24 hrs: Laboratory Results - last 24 hr 07/19/19 07/20/19 07/20/19 Range/Units 17:27 05:25 05:58 Sodium 138 (136-145) mmol/L Potassium 4.1 (3.5-5.1) mmol/L Chloride 106 (98-107) mmol/L Carbon Dioxide 22.2 (21.0-32.0) mmol/L BUN 25 H (7.0-18.0) mg/dL Creatinine 1.0 (0.6-1.0) mg/dL Est Cr Clr Drug Dosing 74.02 mL/min Estimated GFR (MDRD) > 60.0 ml/min Glucose 271 H (74-106) mg/dL POC Glucose 253 H 282 H (60-110) mg/dL Calcium 8.5 (8.5-10.1) mg/dL Magnesium 1.9 (1.8-2.4) mg/dL 07/20/19 Range/Units 11:30 Sodium (136-145) mmol/L Potassium (3.5-5.1) mmol/L Chloride (98-107) mmol/L Carbon Dioxide (21.0-32.0) mmol/L BUN (7.0-18.0) mg/dL Creatinine (0.6-1.0) mg/dL Est Cr Clr Drug Dosing mL/min Estimated GFR (MDRD) ml/min Glucose (74-106) mg/dL POC Glucose 327 H (60-110) mg/dL Calcium (8.5-10.1) mg/dL Magnesium (1.8-2.4) mg/dL Med Orders - Current: Current Medications Amlodipine Besylate (Norvasc) 10 mg PO DAILY [facility] Last Admin: 07/20/19 08:39 Dose: 10 mg Aspirin (Ecotrin) 325 mg PO DAILY [facility] Last Admin: 07/20/19 08:40 Dose: 325 mg Atorvastatin Calcium (Lipitor) 80 mg PO DAILY [facility] Last Admin: 07/20/19 08:39 Dose: 80 mg Sodium Chloride (Normal Saline) 1,000 mls @ 125 mls/hr IV Q8H [facility] Last Admin: 07/20/19 05:32 Dose: 125 mls/hr Methylprednisolone Sodium Succinate 1,000 mg/ Sodium Chloride 108 mls @ 108 mls /hr IV ONETIME [facility] Stop: 07/20/19 12:59 Last Admin: 07/20/19 11:26 Dose: 108 mls/hr Insulin Aspart (Novolog) 0 unit SUBCUT TIDAC [facility]; Protocol Last Admin: 07/20/19 12:02 Dose: 4 units Sodium Chloride (Saline Flush) 10 ml FLUSH ASDIRECTED PRN PRN Reason: Keep Vein Open Sodium Chloride (Saline Flush) 2.5 ml FLUSH ASDIRECTED PRN PRN Reason: Keep Vein Open Sodium Chloride (Normal Saline) 10 ml IV ASDIRECTED PRN PRN Reason: IV Use Discontinued Medications Aspirin (Aspirin) 325 mg PO DAILY [facility] Last Admin: 07/19/19 09:33 Dose: Not Given Atorvastatin Calcium (Lipitor) 80 mg PO BEDTIME [facility] Methylprednisolone Sodium Succinate 1,000 mg/ Sodium Chloride 108 mls @ 108 mls /hr IV ONETIME ONE Stop: 07/19/19 03:29 Last Admin: 07/19/19 03:07 Dose: 108 mls/hr Methylprednisolone Sodium Succinate 1,000 mg/ Sodium Chloride 108 mls @ 108 mls /hr IV Q24H [facility] Last Admin: 07/19/19 21:40 Dose: 108 mls/hr Methylprednisolone Sodium Succinate 1,000 mg/ Sodium Chloride 116 mls @ 116 mls /hr IV ONETIME ONE Stop: 07/19/19 04:29 Last Admin: 07/19/19 04:05 Dose: Not Given Sodium Chloride (Normal Saline) 1,000 mls @ 999 mls/hr IV ONETIME ONE Stop: 07/19/19 09:48 Last Admin: 07/19/19 09:29 Dose: 999 mls/hr Metformin HCl (Glucophage) 500 mg PO DAILY [facility] Last Admin: 07/19/19 09:25 Dose: 500 mg Methylprednisolone Sodium Succinate (Solu-Medrol) 1,000 mg IV NOW ONE Stop: 07/19/19 01:47 Methylprednisolone Sodium Succinate (Solu-Medrol) Confirm Administered Dose 1, 000 mg .ROUTE .STK-MED ONE Stop: 07/19/19 02:23 Last Admin: 07/19/19 04:04 Dose: Not Given Methylprednisolone Sodium Succinate (Solu-Medrol) 1,000 mg IV NOW ONE Stop: 07/19/19 03:16 Non-Formulary Medication (Hydrochlorothiazide/Lisinopril [Lisinopril/Hctz 20- 12.5 Mg]) 2 tab PO DAILY JIM[facility]E - Exam General: Reports: Alert, Oriented, Cooperative, No Acute Distress Lungs: Reports: Clear to Auscultation, Normal Respiratory Effort Cardiovascular: Reports: Regular Rate, Regular Rhythm GI/Abdominal Exam: Normal Bowel Sounds, Soft Extremities: Normal Inspection, Normal Range of Motion, Non-Tender Neurological: Denies: Strength Equal Bilateral (R 2/5 and L 5/5)
== END 2019-07-20 13:20 | disposition home or self-care (01) ==
LOC: MW.ED 21:47 → MW.MS 23:02
PROVIDERS: ADMIT Student in an Organized Health Care Education/Training Program; ATTEND Student in an Organized Health Care Education/Training Program
DX: R20.0 Anesthesia of skin (principal); R53.1 Weakness; N17.9 Acute kidney failure, unspecified; I10 Essential (primary) hypertension; F41.9 Anxiety disorder, unspecified; E11.9 Type 2 diabetes mellitus without complications; G35 Multiple sclerosis; E66.9 Obesity, unspecified; Z20.828 Contact with and (suspected) exposure to other viral communicable diseases; Z86.69 Personal history of other diseases of the nervous system and sense organs; Z79.82 Long term (current) use of aspirin; Z79.899 Other long term (current) drug therapy; Z79.84 Long term (current) use of oral hypoglycemic drugs; Z68.31 Body mass index [BMI] 31.0-31.9, adult
CPT/HCPCS: 36415; 70450; 80048; 80053; 82962; 83735; 84484; 84702; 85025; 85610; 87635; 93005; 96361; 96365; 96366; 96376; 97161; 97165; 99285; A9270; G0378; J1815; J2930; J7030; J7050; 99283; U0002

== ENCOUNTER 2019-10-12 23:45 | Emergency (ER) | payer MEDICAID | END 2019-10-12 23:58 | disposition home or self-care (01) | LOC: MW.ED 23:45 | DX: Z53.21 Procedure and treatment not carried out due to patient leaving prior to being seen by health care provider (principal) ==

== ENCOUNTER 2019-10-17 05:30 | Emergency (ER) | payer MEDICAID ==
[2019-10-17] MEDS ORDERED: Magnesium Citrate Solution 296 ML Bottle PO ONE (05:41)
[2019-10-17] MEDS ORDERED: Magnesium Citrate Solution 296 ML Bottle ONE (05:43)
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
== END 2019-10-17 05:50 | disposition home or self-care (01) ==
LOC: MW.ED 05:30
DX: K59.00 Constipation, unspecified (principal); R00.0 Tachycardia, unspecified; I10 Essential (primary) hypertension; E11.9 Type 2 diabetes mellitus without complications; E66.9 Obesity, unspecified; Z79.84 Long term (current) use of oral hypoglycemic drugs; Z79.82 Long term (current) use of aspirin; Z79.899 Other long term (current) drug therapy; Z68.28 Body mass index [BMI] 28.0-28.9, adult
CPT/HCPCS: 99282; 99283

== ENCOUNTER 2020-04-05 10:21 | Emergency (ER) | payer MEDICAID ==
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
[2020-04-05] MEDS ORDERED: Lactated Ringers 1,000 ML IV ONE (10:53)
[2020-04-05 11:50] LABS: BLOOD UREA NITROGEN,BUN 12 mg/dL (7.0-18.0); CARBON DIOXIDE,CO2 25.2 mmol/L (21.0-32.0); CHLORIDE,CL 106 mmol/L (98-107); GLUCOSE RANDOM 113 mg/dL (74-106); POTASSIUM,K 3.9 mmol/L (3.5-5.1); SODIUM,NA 142 mmol/L (136-145)
--- NOTE | 2020-04-05 12:35 | US ---
Indication: Menorrhagia. Technique: Grayscale and color ultrasound of the pelvis was performed by endovaginal approach. Comparison: None Findings: On transvaginal ultrasound, the uterus measures 7.4 x 4.2 x 6.2 centimeters in size. The endometrial stripe measures 1.2 centimeters in size. A minimal amount of fluid is identified within the endometrial canal. The right ovary measures 4.3 x 3.0 x 3.8 centimeters in size. Normal color flow was identified to the right ovary. A dominant follicle is identified in the right ovary measuring 2.2 centimeters in size. The left ovary measures 4.7 x 1.7 x 4.3 centimeters in size. Color-flow to the left ovary is normal. Small follicles are identified on the left. A moderate amount of free fluid is identified within the pelvis. Impression: Free fluid identified within the pelvis. Minimal amount of fluid identified within the endometrial canal. Dictated by Allyn Bennett MD @ Apr 05 2020 12:32PM Signed by Dr. Allyn Bennett @ Apr 05 2020 12:35PM
[2020-04-05] MEDS ORDERED: Tranexamic Acid 1,000 MG in Sodium Chloride 0.9% 100 ML IV ONE (14:24)
== END 2020-04-05 15:39 | disposition home or self-care (01) ==
LOC: MW.ED 10:21
DX: N92.0 Excessive and frequent menstruation with regular cycle (principal); I10 Essential (primary) hypertension; E11.9 Type 2 diabetes mellitus without complications; E66.9 Obesity, unspecified; Z68.29 Body mass index [BMI] 29.0-29.9, adult; Z79.01 Long term (current) use of anticoagulants; Z79.82 Long term (current) use of aspirin; Z79.84 Long term (current) use of oral hypoglycemic drugs; Z79.899 Other long term (current) drug therapy
CPT/HCPCS: 36415; 76830; 80053; 84703; 85018; 85025; 85610; 85730; 86850; 86900; 86901; 96365; 99285; J7120; 93010; 99283

== ENCOUNTER 2020-04-07 21:16 | Inpatient (IN) | payer MEDICAID ==
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
[2020-04-07] MEDS ORDERED: Lactated Ringers 1,000 ML IV ONE (21:35)
[2020-04-07] MEDS ORDERED: Tranexamic Acid 1,000 MG in Sodium Chloride 0.9% 100 ML IV ONE (21:37)
[2020-04-07] MEDS ORDERED: Ondansetron 4 MG/2 ML SDV IVPUSH ONE (22:31)
[2020-04-07 22:40] LABS: BLOOD UREA NITROGEN,BUN 13 mg/dL (7.0-18.0); CARBON DIOXIDE,CO2 22.5 mmol/L (21.0-32.0); CHLORIDE,CL 105 mmol/L (98-107); GLUCOSE RANDOM 128 mg/dL (74-106); POTASSIUM,K 3.6 mmol/L (3.5-5.1); SODIUM,NA 138 mmol/L (136-145)
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
--- NOTE | 2020-04-08 02:36 | PN ---
[facility] Physician - Brief Progress [id number]/09/2021 02:26[facility] Horne Leandro john, [place] - DEXN (GORGE) - CHERYL JULIANNA RUBIODate of Service 04/08/2020 02:26HPI/Events of Note Chart reviewed. On camera, the patient is asleep in bed, appears in NAD, HR 107. Julianna is a 30 year old c/c dizzy, tired, severe uterine bleeding, which has been a recurrent issue for her and w matteoe since she is on anticoagulation (Xarelto). Hgb 4.7. Seen in ED 04/05, recxd Tranexamic acid and Rx for Progestin but patient unable to fill. Has IUD in place but has not helped her bleeding.PMH: CVA, protein S deficiency on chronic anticoagulation. Investigations reviewed.A/P:1. Severe hemorrhage du e to abnormal uterine bleedingMonitor closely in ICU.Transfuse to Hgb 7 and above (unless she becomes hemodynamically unstable).Consult gynecology as patient needs a more permanent solution for the blee ding given that she requires chronic anticaogulation to prevent further strokes or other vascular thr ombotic events which could lead to disability and .2. CVA in setting of protein S deficiencyXare lto is on hold. Monitor closely for any new neurologic findings.Would d/w Director Orange and resume anticoagulat ion as soon as possible - please see above.3. DVT prophylaxis - SCDs, ambulate at least 500 feet tid. Interventions Major-Hemorrhage - evaluation and management, Other: h/o CVA in setting of protein S de ficiency
[2020-04-08 06:49] LABS: BLOOD UREA NITROGEN,BUN 12 mg/dL (7.0-18.0); CARBON DIOXIDE,CO2 22.6 mmol/L (21.0-32.0); CHLORIDE,CL 109 mmol/L (98-107); GLUCOSE RANDOM 94 mg/dL (74-106); POTASSIUM,K 3.5 mmol/L (3.5-5.1); SODIUM,NA 138 mmol/L (136-145)
--- NOTE | 2020-04-08 09:05 | PCM.PN ---
- General Info Date of Service: 04/08/20 Subjective Update: No complaints at bedside this AM. States she feels much better after blood transfusions. Denies having any dizziness, SOB, chest pain, nausea or vomiting. Vaginal bleeding has improved overnight. - Patient Data Vitals - Most Recent: Last Vital Signs Temp 36.2 C 04/08/20 06:50 Pulse 103 H 04/08/20 05:00 Resp 17 04/08/20 07:58 BP 125/79 04/08/20 07:58 Pulse Ox 100 04/08/20 07:58 Weight - Most Recent: 79.923 kg I&O - Last 24 Hours: Intake & Output 04/07/20 04/08/20 04/08/20 22:59 06:59 14:59 Intake Total 700 Output Total 712 Balance -12 Lab Results Last 24 Hours: Laboratory Results - last 24 hr 04/07/20 04/07/20 04/07/20 Range/Units 21:48 22:08 22:08 WBC 8.17 (4.0-11.0) K/uL RBC 1.81 L (4.30-5.90) M/uL Hgb 4.7 L* (12.0-16.0) g/dL Hct 14.8 L (36.0-46.0) % MCV 81.8 (80.0-98.0) fL MCH 26.0 L (27.0-32.0) pg MCHC 31.8 (31.0-37.0) g/dL RDW Std Deviation 41.3 (28.0-62.0) fl RDW Coeff of Dequan 14 (11.0-15.0) % Plt Count 210 (150-400) K/uL MPV 9.70 (7.40-12.00) fL Neut % (Auto) 79.0 (48.0-80.0) % Lymph % (Auto) 14.1 L (16.0-40.0) % [place] % (Auto) 6.9 (0.0-15.0) % Eos % (Auto) 0.0 (0.0-7.0) % Baso % (Auto) 0.0 (0.0-1.5) % Neut # (Auto) 6.5 H (1.4-5.7) K/uL Lymph # (Auto) 1.2 (0.6-2.4) K/uL [place] # (Auto) 0.6 (0.0-0.8) K/uL Eos # (Auto) 0.0 (0.0-0.7) K/uL Baso # (Auto) 0.0 (0.0-0.1) K/uL Nucleated RBC % 0.0 /100WBC Nucleated RBCs # 0 K/uL Absolute Retic (20-80) K/uL Percent Retic (0.5-1.5) % Immature Retic Fraction % INR 1.41 Sodium 138 (136-145) mmol/L Potassium 3.6 (3.5-5.1) mmol/L Chloride 105 (98-107) mmol/L Carbon Dioxide 22.5 (21.0-32.0) mmol/L BUN 13 (7.0-18.0) mg/dL Creatinine 0.8 (0.6-1.0) mg/dL Est Cr Clr Drug Dosing 91.68 mL/min Estimated GFR (MDRD) > 60.0 ml/min Glucose 128 H (74-106) mg/dL POC Glucose (60-110) mg/dL Calcium 7.4 L (8.5-10.1) mg/dL Iron (50-175) ug/dL TIBC (250-450) ug/dL % Saturation (20-55) % Transferrin Ferritin (8-252) ng/mL Total Bilirubin 0.4 (0.2-1.0) mg/dL AST 8 L (15-37) IU/L ALT 20 (14-63) IU/L Alkaline Phosphatase 31 L (46-116) U/L Troponin I < 0.050 (0.000-0.056) ng/mL Total Protein 5.1 L (6.4-8.2) g/dL Albumin 2.8 L (3.4-5.0) g/dL Globulin 2.3 L (2.6-4.0) g/dL Albumin/Globulin Ratio 1.2 (0.9-1.6) SARS-CoV-2 RNA (CESIA) (NEGATIVE) Blood Type Antibody Screen Crossmatch 04/07/20 04/07/20 04/07/20 Range/Units 22:08 22:08 22:08 WBC (4.0-11.0) K/uL RBC 1.80 L (4.30-5.90) M/uL Hgb (12.0-16.0) g/dL Hct (36.0-46.0) % MCV (80.0-98.0) fL MCH (27.0-32.0) pg MCHC (31.0-37.0) g/dL RDW Std Deviation (28.0-62.0) fl RDW Coeff of Dequan (11.0-15.0) % Plt Count (150-400) K/uL MPV (7.40-12.00) fL Neut % (Auto) (48.0-80.0) % Lymph % (Auto) (16.0-40.0) % [place] % (Auto) (0.0-15.0) % Eos % (Auto) (0.0-7.0) % Baso % (Auto) (0.0-1.5) % Neut # (Auto) (1.4-5.7) K/uL Lymph # (Auto) (0.6-2.4) K/uL [place] # (Auto) (0.0-0.8) K/uL Eos # (Auto) (0.0-0.7) K/uL Baso # (Auto) (0.0-0.1) K/uL Nucleated RBC % /100WBC Nucleated RBCs # K/uL Absolute Retic 93.80 H (20-80) K/uL Percent Retic 5.2 H (0.5-1.5) % Immature Retic Fraction 38 % INR Sodium (136-145) mmol/L Potassium (3.5-5.1) mmol/L Chloride (98-107) mmol/L Carbon Dioxide (21.0-32.0) mmol/L BUN (7.0-18.0) mg/dL Creatinine (0.6-1.0) mg/dL Est Cr Clr Drug Dosing mL/min Estimated GFR (MDRD) ml/min Glucose (74-106) mg/dL POC Glucose (60-110) mg/dL Calcium (8.5-10.1) mg/dL Iron 8 L (50-175) ug/dL TIBC 264 (250-450) ug/dL % Saturation 3.03 L (20-55) % Transferrin 184.8 Ferritin 4 L (8-252) ng/mL Total Bilirubin (0.2-1.0) mg/dL AST (15-37) IU/L ALT (14-63) IU/L Alkaline Phosphatase (46-116) U/L Troponin I (0.000-0.056) ng/mL Total Protein (6.4-8.2) g/dL Albumin (3.4-5.0) g/dL Globulin (2.6-4.0) g/dL Albumin/Globulin Ratio (0.9-1.6) SARS-CoV-2 RNA (CESIA) (NEGATIVE) Blood Type A POSITIVE Antibody Screen NEGATIVE Crossmatch See Detail 04/07/20 04/08/20 04/08/20 Range/Units 22:35 01:05 06:15 WBC (4.0-11.0) K/uL RBC (4.30-5.90) M/uL Hgb (12.0-16.0) g/dL Hct (36.0-46.0) % MCV (80.0-98.0) fL MCH (27.0-32.0) pg MCHC (31.0-37.0) g/dL RDW Std Deviation (28.0-62.0) fl RDW Coeff of Dequan (11.0-15.0) % Plt Count (150-400) K/uL MPV (7.40-12.00) fL Neut % (Auto) (48.0-80.0) % Lymph % (Auto) (16.0-40.0) % [place] % (Auto) (0.0-15.0) % Eos % (Auto) (0.0-7.0) % Baso % (Auto) (0.0-1.5) % Neut # (Auto) (1.4-5.7) K/uL Lymph # (Auto) (0.6-2.4) K/uL [place] # (Auto) (0.0-0.8) K/uL Eos # (Auto) (0.0-0.7) K/uL Baso # (Auto) (0.0-0.1) K/uL Nucleated RBC % /100WBC Nucleated RBCs # K/uL Absolute Retic (20-80) K/uL Percent Retic (0.5-1.5) % Immature Retic Fraction % INR Sodium 138 (136-145) mmol/L Potassium 3.5 (3.5-5.1) mmol/L Chloride 109 H (98-107) mmol/L Carbon Dioxide 22.6 (21.0-32.0) mmol/L BUN 12 (7.0-18.0) mg/dL Creatinine 0.7 (0.6-1.0) mg/dL Est Cr Clr Drug Dosing 104.78 mL/min Estimated GFR (MDRD) > 60.0 ml/min Glucose 94 (74-106) mg/dL POC Glucose 133 H (60-110) mg/dL Calcium 7.3 L (8.5-10.1) mg/dL Iron (50-175) ug/dL TIBC (250-450) ug/dL % Saturation (20-55) % Transferrin Ferritin (8-252) ng/mL Total Bilirubin (0.2-1.0) mg/dL AST (15-37) IU/L ALT (14-63) IU/L Alkaline Phosphatase (46-116) U/L Troponin I (0.000-0.056) ng/mL Total Protein (6.4-8.2) g/dL Albumin (3.4-5.0) g/dL Globulin (2.6-4.0) g/dL Albumin/Globulin Ratio (0.9-1.6) SARS-CoV-2 RNA (CESIA) NEGATIVE (NEGATIVE) Blood Type Antibody Screen Crossmatch 04/08/20 04/08/20 Range/Units 06:15 06:15 WBC 8.43 (4.0-11.0) K/uL RBC 2.96 L (4.30-5.90) M/uL Hgb 8.5 L (12.0-16.0) g/dL Hct 25.4 L (36.0-46.0) % MCV 85.8 (80.0-98.0) fL MCH 28.7 (27.0-32.0) pg MCHC 33.5 (31.0-37.0) g/dL RDW Std Deviation 44.5 (28.0-62.0) fl RDW Coeff of Dequan 14 (11.0-15.0) % Plt Count 180 (150-400) K/uL MPV 10.40 (7.40-12.00) fL Neut % (Auto) 62.9 (48.0-80.0) % Lymph % (Auto) 26.3 (16.0-40.0) % [place] % (Auto) 10.6 (0.0-15.0) % Eos % (Auto) 0.2 (0.0-7.0) % Baso % (Auto) 0.0 (0.0-1.5) % Neut # (Auto) 5.3 (1.4-5.7) K/uL Lymph # (Auto) 2.2 (0.6-2.4) K/uL [place] # (Auto) 0.9 H (0.0-0.8) K/uL Eos # (Auto) 0.0 (0.0-0.7) K/uL Baso # (Auto) 0.0 (0.0-0.1) K/uL Nucleated RBC % 0.0 /100WBC Nucleated RBCs # 0 K/uL Absolute Retic (20-80) K/uL Percent Retic (0.5-1.5) % Immature Retic Fraction % INR Sodium (136-145) mmol/L Potassium (3.5-5.1) mmol/L Chloride (98-107) mmol/L Carbon Dioxide (21.0-32.0) mmol/L BUN (7.0-18.0) mg/dL Creatinine (0.6-1.0) mg/dL Est Cr Clr Drug Dosing mL/min Estimated GFR (MDRD) ml/min Glucose (74-106) mg/dL POC Glucose 98 (60-110) mg/dL Calcium (8.5-10.1) mg/dL Iron (50-175) ug/dL TIBC (250-450) ug/dL % Saturation (20-55) % Transferrin Ferritin (8-252) ng/mL Total Bilirubin (0.2-1.0) mg/dL AST (15-37) IU/L ALT (14-63) IU/L Alkaline Phosphatase (46-116) U/L Troponin I (0.000-0.056) ng/mL Total Protein (6.4-8.2) g/dL Albumin (3.4-5.0) g/dL Globulin (2.6-4.0) g/dL Albumin/Globulin Ratio (0.9-1.6) SARS-CoV-2 RNA (CESIA) (NEGATIVE) Blood Type Antibody Screen Crossmatch Med Orders - Current: Current Medications Discontinued Medications Lactated Ringer's (Ringers, Lactated) 1,000 mls @ 999 mls/hr IV .BOLUS ONE Stop: 04/07/20 22:35 Last Admin: 04/07/20 22:08 Dose: 999 mls/hr Documented by: Tranexamic Acid 1,000 mg/ (Sodium Chloride) 110 mls @ 660 mls/hr IV ONETIME ONE Stop: 04/07/20 21:46 Last Admin: 04/07/20 22:08 Dose: 660 mls/hr Documented by: Ondansetron HCl (Zofran) 4 mg IVPUSH ONETIME ONE Stop: 04/07/20 22:32 Last Admin: 04/07/20 22:38 Dose: 4 mg Documented by: - Exam General: Alert, Oriented, Cooperative, No Acute Distress Lungs: Clear to Auscultation, Normal Respiratory Effort Cardiovascular: Regular Rate, Regular Rhythm GI/Abdominal Exam: Normal Bowel Sounds, Soft, Non-Tender, No Distention Extremities: Normal Inspection, No Pedal Edema Sepsis Event Note - Evaluation Sepsis Screening Result: No Definite Risk - Focused Exam Vital Signs: Vital Signs Temp Temp Pulse Resp BP Pulse Ox 04/08/20 07:58 17 125/79 100 04/08/20 06:50 36.2 C 17 120/83 100 04/08/20 05:50 37 C 15 101/55 L 100 04/08/20 05:00 103 H 17 124/86 98 04/08/20 04:00 37.2 C 18 120/67 96 04/08/20 03:45 37.2 C 16 113/76 99 04/08/20 03:32 37.2 C 19 113/72 100 04/08/20 03:00 94 15 107/69 100 04/08/20 02:00 104 H 17 108/67 100 04/08/20 01:45 36.7 C 16 117/69 100 04/08/20 01:30 36.9 C 17 107/73 100 04/08/20 01:00 101 H 19 119/70 100 04/08/20 00:24 36.9 C 103 H 13 106/62 100 04/07/20 22:44 110 H 117/77 99 04/07/20 21:21 36.2 C 109 H 18 120/70 100 - Problem List & Annotations (1) Dysfunctional uterine bleeding SNOMED Code(s): 42024553620087 Code(s): N93.8 - OTHER SPECIFIED ABNORMAL UTERINE AND VAGINAL BLEEDING Status: Acute Current Visit: Yes (2) Symptomatic anemia SNOMED Code(s): 306641970 Code(s): D64.9 - ANEMIA, UNSPECIFIED Status: Acute Current Visit: Yes - Problem List Review Problem List Initiated/Reviewed/Updated: Yes - My Orders Last 24 Hours: My Active Orders 04/08/20 08:56 Consult to Physician [CONS] Routine 04/08/20 08:57 Notify Provider Consults [RC] ASDIRECTED - Plan Plan:: Assessment and Plan: 1. Acute symptomatic anemia secondary to abnormal uterine bleeding S/P transfusion 3 units PRBC's: - Post-transfusion Hgb is 8.5. Patient received IV TXA 1 g in ER. Xarelto held on admission. Patient is NPO. [employer] Dr. Arciniega consulted who will plan for D&C. 2. DM type II: - Will hold metformin. Accuchecks q6h. 3. Past medical history of CVA, protein S deficiency and HTN: - Xarelto has been held secondary to #1. - Prior medical records from neurology and hematology requested. 4. DVT prophylaxis: - SCD's.
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
[2020-04-08] MEDS ORDERED: Ondansetron 4 MG/2 ML SDV IVPUSH PRN (12:53)
[2020-04-08] MEDS ORDERED: Dexamethasone 4 MG/ML 5 ML MDV ONE (13:05)
[2020-04-08] MEDS ORDERED: Ondansetron 4 MG/2 ML SDV ONE (13:05)
[2020-04-08] MEDS ORDERED: Lidocaine 2% 5 ML SDV ONE (13:05)
[2020-04-08] MEDS ORDERED: Propofol 200 MG/20 ML SDV ONE (13:05)
[2020-04-08] MEDS ORDERED: fentaNYL 100 MCG/2 ML SDV ONE (13:05)
[2020-04-08] MEDS ORDERED: HYDROmorphone 2 MG/ML Syringe ONE ×2 (13:19→17:30)
[2020-04-08] MEDS ORDERED: Tranexamic Acid 1,000 MG in Sodium Chloride 0.9% 100 ML IV ONE (14:00)
[2020-04-08] MEDS ORDERED: Midazolam 1 MG/ML 2 ML SDV ONE (15:43)
--- NOTE | 2020-04-08 17:12 | PCM.SN.2 ---
- Free Text/Narrative Note: I consulted with Director Workforce Management ( Dr Sai Candelaria) taking care of patient Protein S . He states since patient has been on Xarelto for 6months It is okay to discontinue. This is same recommendation in his clinic note for patient. If patient can stop Xarelto, her AUB caused by anticoagulation with be controlled and she will no longer need a hysterectomy. Patient can follow up with me in 1 week in the clinic
--- NOTE | 2020-04-08 17:15 | PCM.OPNOTE ---
- General Post-Op/Procedure Note Date of Surgery/Procedure: 04/08/20 Operative Procedure(s): Hysteroscopy Dilatation and Curettage. Suction curettage Findings: Normal sized anteverted uterus Uterus sounded to 9cm Poor visualization of endometrial cavity due to blood Moderate amount of blood clot evacuated from uterine cavity Methergine 0.2mg IM given to help with uterine contractility Pre Op Diagnosis: Abnormal uterine bleeding - Iatrogenic. Protein S deficiency on anticoagulation. Severe Anaemia Post-Op Diagnosis: same Anesthesia Technique: General Mask Primary Surgeon: Lety Arciniega Pathology: Endometrial curettings Fluid Replacement, Intraop: 1,000 EBL in mLs: 200 Complications: None Condition: Fair Free Text/Narrative:: Intake & Output 04/08/20 04/08/20 04/08/20 06:59 14:59 22:59 Intake Total 700 573 0 Output Total 710 865 Balance -12 465 -971
[2020-04-08] MEDS ORDERED: HYDROmorphone 1 MG/ML Syringe IVPUSH ONE (17:23)
--- NOTE | 2020-04-08 17:54 | PCM.POSTAN ---
POST ANESTHESIA ASSESSMENT - MENTAL STATUS Mental Status: Alert, Oriented - VITAL SIGNS Vital Signs: Last Vital Signs Temp 36.8 C 04/08/20 17:01 Pulse 93 04/08/20 17:38 Resp 12 04/08/20 17:38 BP 139/89 04/08/20 17:38 Pulse Ox 96 04/08/20 17:38 - RESPIRATORY Respiratory Status: Respiratory Rate WNL, Airway Patent, O2 Saturation Stable - CARDIOVASCULAR CV Status: Pulse Rate WNL, Blood Pressure Stable (BP 140's/90's, pt to resume PO amlodipine this evening. RB&V with RN on transfer.) - GASTROINTESTINAL GI Status: No Symptoms - PAIN Pain Score: 5 Free Text/Narrative:: 5/10 abd. cramping, sleeping intermitantly, pt reports pain controlled to a satisfactory level. - POST OP HYDRATION Hydration Status: Adequate & Stable - OBSERVATIONS Free Text/Narrative:: Okay to transfer to ICU. Pt alert/oriented and neurologically intact. VSS. Pain well-controlled, denies nausea.
[2020-04-08] MEDS ORDERED: Glucagon,Human Recombinant 1 MG Vial IM PRN (18:08)
[2020-04-08] MEDS ORDERED: 50% Dextrose in Water 50 ML Syringe IVPUSH PRN (18:08)
[2020-04-09 06:02] LABS: BLOOD UREA NITROGEN,BUN 7 mg/dL (7.0-18.0); CARBON DIOXIDE,CO2 21.9 mmol/L (21.0-32.0); CHLORIDE,CL 105 mmol/L (98-107); GLUCOSE RANDOM 112 mg/dL (74-106); POTASSIUM,K 4.1 mmol/L (3.5-5.1); SODIUM,NA 140 mmol/L (136-145)
[2020-04-09] MEDS ORDERED: Insulin Aspart 100 Units/ML 3 ML Pen SUBCUT SCH (07:30)
--- NOTE | 2020-04-09 08:36 | OR ---
SURGEON: KIRA CHOI DATE OF PROCEDURE: 04/08/2020 PREOPERATIVE DIAGNOSIS: A 30-year-old, para 0, with abnormal uterine bleeding secondary to anticoagulation with Xarelto. POSTOPERATIVE DIAGNOSES: A 30-year-old, para 0, with abnormal uterine bleeding secondary to anticoagulation with Xarelto. Also, severe anemia and protein S deficiency. PROCEDURE: Hysteroscopy, D and C, and suction curettage. ANESTHESIA: General. ESTIMATED BLOOD LOSS: 200. IV FLUID: 1000. COMPLICATIONS: None. NOTES AND FINDINGS: It is a normal-sized anteverted uterus. Hysteroscopy with very poor visualization because of bleeding, moderate amount of dark clot evacuated from uterine cavity. IM Methergine given to help with contractility of the uterus. BRIEF HISTORY ABOUT THE PATIENT: A 30-year-old, para 0, with a past medical history of type 2 diabetes, CVA, protein S deficiency. The patient said she was diagnosed with a CVA episode in June and was placed on anticoagulation. Since then the patient has been placed on anticoagulation, the patient has been having abnormally prolonged uterine bleeding. She had previously received blood transfusion and iron infusion in the past. However, in the past 5 days, the patient said she was seen in the ER x2, and she said she was having a heavy amount of vaginal bleeding. On admission, H and H were 4, and she received 3 units of blood. Ultrasound was done, which was essentially normal, and the patient was desiring a hysterectomy. However, consult with refuge worker, who stated the patient could stop Xarelto since she completed 6months. So the patient had a D and C done and hysteroscopy done to be able to evaluate the endometrial cavity. DESCRIPTION OF PROCEDURE: The patient was taken to the operating room where general anesthesia was performed without difficulty. She was prepared and draped in the dorsal lithotomy position with an Delmar stirrup. The cervix was exposed with a speculum and anterior lip grasped with an allis clamp. The cervix could accommodate the MyoSure hysteroscope. Attempts were made to visualize the uterine cavity , which was not successful, and as a result the device was switched to a suction curette. With the aid of the suction curette in a rotatory motion a large amount of old dark clots was evacuated. Then, the suction was withdrawn and the sharp curette was done and tissue was sent for pathology. Methergine was given to help with uterine contractility. The Allis was removed. The speculum was removed. The cervix was observed for a while, scant amount of bleeding was noted after the procedure. The patient tolerated the procedure well. All instrument and pad counts were correct x2. NIKKIE / AMN /[id number] MTDD
--- NOTE | 2020-04-09 11:17 | PCM48HPAN ---
Post Anesthesia Note - EVALUATION WITHIN 48HRS OF ANESTHETIC Vital Signs in Normal Range: Yes Patient Participated in Evaluation: Yes Respiratory Function Stable: Yes Airway Patent: Yes Cardiovascular Function Stable: Yes Hydration Status Stable: Yes Pain Control Satisfactory: Yes (Denies pain) Nausea and Vomiting Control Satisfactory: Yes (Denies N/V, taking PO well) Mental Status Recovered: Yes Vital Signs: Last Vital Signs Temp 36.5 C 04/09/20 08:00 Pulse 96 04/08/20 17:53 Resp 17 04/09/20 10:00 BP 134/86 04/09/20 10:00 Pulse Ox 98 04/09/20 10:00
--- NOTE | 2020-04-09 11:20 | PCM.DCSUM1 ---
<Bashir Townsend - Last Filed: 04/09/20 17:35> Discharge Summary - Hospital Course Free Text/Narrative:: 30-year-old female admitted for acute symptomatic anemia secondary to abnormal uterine bleeding. She has a PMH of CVA, protein S deficiency and HTN. Patient was started on Xarelto last year after being diagnosed with CVA in the setting of protein S deficiency. She was seen by neurology and hematology last year. Patient had difficulty controlling her uterine bleeding since being started on Xarelto. On admission, her Hgb level was 4.7 and she complained of being dizzy and weak. Patient was transfused with 4 units of PRBC's and 1 unit of FFP. OB- Doctor Of Medicine consulted and contacted patient's motorboat mechanic inboard from [facility] who stated that since patient has been on Xarelto for 6 months it can be discontinued and patient does not require to be on this any longer. OB-Doctor Of Medicine then performed D & C. Patient's post-transfusion hemoglobin levels were trended and stable. Patient had improvement in her bleeding by day of discharge. Per OB-Doctor Of Medicine, patient was advised to resume noerthindrone cascade that was previously prescribed for her. She was also started on an iron supplement. Patient scheduled for follow-up with OB-Doctor Of Medicine in 1 week. - Discharge Data Discharge Date: 04/09/20 Discharge Disposition: Home, Self-Care 01 Condition: Stable - Referral to Home Health Primary Care Physician: PCP None - Discharge Diagnosis/Problem(s) (1) Dysfunctional uterine bleeding SNOMED Code(s): 11099995062355 ICD Code: N93.8 - OTHER SPECIFIED ABNORMAL UTERINE AND VAGINAL BLEEDING Status: Acute (2) Symptomatic anemia SNOMED Code(s): 897140769 ICD Code: D64.9 - ANEMIA, UNSPECIFIED Status: Acute - Patient Summary/Data Operative Procedure(s) Performed: Hysteroscopy Dilatation and Curettage. Suction curettage Consults: Consultations 04/08/20 08:56 Consult to Physician [CONS] Routine - Patient Instructions Diet: Diabetic Diet Activity: As Tolerated Notify Provider of: Fever, Increased Pain, Swelling and Redness, Drainage, Nausea and/or Vomiting - Discharge Plan *PRESCRIPTION DRUG MONITORING PROGRAM REVIEWED*: Not Applicable *COPY OF PRESCRIPTION DRUG MONITORING REPORT IN PATIENT JOY: Not Applicable Prescriptions/Med Rec: Iron Ag,Ps/C/Fa6/B12/Zn/SA/Sto [Niferex Tablet] 1 each PO DAILY 30 Days #30 tablet Home Medications: Home Meds metFORMIN HCl [Metformin HCl] 500 mg PO DAILY #30 tablet 07/17/19 [Rx] atorvaSTATin [Lipitor] 80 mg PO DAILY 07/19/19 [History] amLODIPine Besylate [Amlodipine Besylate] 10 mg PO DAILY 04/08/20 [History] Iron Ag,Ps/C/Fa6/B12/Zn/SA/Sto [Niferex Tablet] 1 each PO DAILY 30 Days #30 tablet 04/09/20 [Rx] Oxygen Therapy Mode: Room Air Patient Handouts: Preventing Iron Deficiency Anemia, Adult, Iron tablets, capsules, extended-release tablets, Near-Syncope, [id number], Norethindrone acetate (hormone replacement), Dysfunctional Uterine Bleeding Referrals: Lety Arciniega MD [Physician] - 04/16/20 2:30 pm (Please bring photo ID and insurance. Be at the clinic 15 minutes before appointment time. Please wear mask.) - Discharge Summary/Plan Comment DC Time >30 min.: No - Patient Data Vitals - Most Recent: Last Vital Signs Temp 36.5 C 04/09/20 08:00 Pulse 96 04/08/20 17:53 Resp 17 04/09/20 10:00 BP 134/86 04/09/20 10:00 Pulse Ox 98 04/09/20 10:00 Weight - Most Recent: 78.698 kg I&O - Last 24 hours: Intake & Output 04/08/20 04/09/20 04/09/20 22:59 06:59 14:59 Intake Total 2500 1300 Output Total 865 2500 Balance 1635 -1200 Lab Results - Last 24 hrs: Laboratory Results - last 24 hr 04/07/20 04/07/20 04/08/20 Range/Units 22:08 22:08 09:10 WBC (4.0-11.0) K/uL RBC (4.30-5.90) M/uL Hgb (12.0-16.0) g/dL Hct (36.0-46.0) % MCV (80.0-98.0) fL MCH (27.0-32.0) pg MCHC (31.0-37.0) g/dL RDW Std Deviation (28.0-62.0) fl RDW Coeff of Dequan (11.0-15.0) % Plt Count (150-400) K/uL MPV (7.40-12.00) fL Neut % (Auto) (48.0-80.0) % Lymph % (Auto) (16.0-40.0) % Pickens % (Auto) (0.0-15.0) % Eos % (Auto) (0.0-7.0) % Baso % (Auto) (0.0-1.5) % Neut # (Auto) (1.4-5.7) K/uL Lymph # (Auto) (0.6-2.4) K/uL Pickens # (Auto) (0.0-0.8) K/uL Eos # (Auto) (0.0-0.7) K/uL Baso # (Auto) (0.0-0.1) K/uL Nucleated RBC % /100WBC Nucleated RBCs # K/uL Sodium (136-145) mmol/L Potassium (3.5-5.1) mmol/L Chloride (98-107) mmol/L Carbon Dioxide (21.0-32.0) mmol/L BUN (7.0-18.0) mg/dL Creatinine (0.6-1.0) mg/dL Est Cr Clr Drug Dosing mL/min Estimated GFR (MDRD) ml/min Glucose (74-106) mg/dL POC Glucose (60-110) mg/dL Calcium (8.5-10.1) mg/dL HCG, Qual NEGATIVE (NEG) Blood Type A POSITIVE Antibody Screen NEGATIVE Crossmatch See Detail See Detail 04/08/20 04/08/20 04/08/20 Range/Units 11:56 15:06 18:27 WBC 7.07 (4.0-11.0) K/uL RBC 3.28 L (4.30-5.90) M/uL Hgb 9.4 L (12.0-16.0) g/dL Hct 27.8 L (36.0-46.0) % MCV 84.8 (80.0-98.0) fL MCH 28.7 (27.0-32.0) pg MCHC 33.8 (31.0-37.0) g/dL RDW Std Deviation 43.4 (28.0-62.0) fl RDW Coeff of Dequan 14 (11.0-15.0) % Plt Count 166 (150-400) K/uL MPV 10.20 (7.40-12.00) fL Neut % (Auto) 65.2 (48.0-80.0) % Lymph % (Auto) 21.6 (16.0-40.0) % Pickens % (Auto) 12.9 (0.0-15.0) % Eos % (Auto) 0.3 (0.0-7.0) % Baso % (Auto) 0.0 (0.0-1.5) % Neut # (Auto) 4.6 (1.4-5.7) K/uL Lymph # (Auto) 1.5 (0.6-2.4) K/uL Pickens # (Auto) 0.9 H (0.0-0.8) K/uL Eos # (Auto) 0.0 (0.0-0.7) K/uL Baso # (Auto) 0.0 (0.0-0.1) K/uL Nucleated RBC % 0.0 /100WBC Nucleated RBCs # 0 K/uL Sodium (136-145) mmol/L Potassium (3.5-5.1) mmol/L Chloride (98-107) mmol/L Carbon Dioxide (21.0-32.0) mmol/L BUN (7.0-18.0) mg/dL Creatinine (0.6-1.0) mg/dL Est Cr Clr Drug Dosing mL/min Estimated GFR (MDRD) ml/min Glucose (74-106) mg/dL POC Glucose 96 113 H (60-110) mg/dL Calcium (8.5-10.1) mg/dL HCG, Qual (NEG) Blood Type Antibody Screen Crossmatch 04/08/20 04/09/20 04/09/20 Range/Units 21:05 05:28 05:28 WBC 9.67 6.71 (4.0-11.0) K/uL RBC 3.75 L 3.30 L (4.30-5.90) M/uL Hgb 10.6 L 9.4 L (12.0-16.0) g/dL Hct 31.8 L 28.0 L (36.0-46.0) % MCV 84.8 84.8 (80.0-98.0) fL MCH 28.3 28.5 (27.0-32.0) pg MCHC 33.3 33.6 (31.0-37.0) g/dL RDW Std Deviation 43.4 44.5 (28.0-62.0) fl RDW Coeff of Dequan 14 14 (11.0-15.0) % Plt Count 189 196 (150-400) K/uL MPV 10.30 10.20 (7.40-12.00) fL Neut % (Auto) 91.5 H 81.0 H (48.0-80.0) % Lymph % (Auto) 6.1 L 12.7 L (16.0-40.0) % Pickens % (Auto) 2.4 6.3 (0.0-15.0) % Eos % (Auto) 0.0 0.0 (0.0-7.0) % Baso % (Auto) 0.0 0.0 (0.0-1.5) % Neut # (Auto) 8.9 H 5.4 (1.4-5.7) K/uL Lymph # (Auto) 0.6 0.9 (0.6-2.4) K/uL Pickens # (Auto) 0.2 0.4 (0.0-0.8) K/uL Eos # (Auto) 0.0 0.0 (0.0-0.7) K/uL Baso # (Auto) 0.0 0.0 (0.0-0.1) K/uL Nucleated RBC % 0.0 0.0 /100WBC Nucleated RBCs # 0 0 K/uL Sodium 140 (136-145) mmol/L Potassium 4.1 (3.5-5.1) mmol/L Chloride 105 (98-107) mmol/L Carbon Dioxide 21.9 (21.0-32.0) mmol/L BUN 7 (7.0-18.0) mg/dL Creatinine 0.7 (0.6-1.0) mg/dL Est Cr Clr Drug Dosing 104.78 mL/min Estimated GFR (MDRD) > 60.0 ml/min Glucose 112 H (74-106) mg/dL POC Glucose (60-110) mg/dL Calcium 7.8 L (8.5-10.1) mg/dL HCG, Qual (NEG) Blood Type Antibody Screen Crossmatch 04/09/20 Range/Units 08:12 WBC (4.0-11.0) K/uL RBC (4.30-5.90) M/uL Hgb (12.0-16.0) g/dL Hct (36.0-46.0) % MCV (80.0-98.0) fL MCH (27.0-32.0) pg MCHC (31.0-37.0) g/dL RDW Std Deviation (28.0-62.0) fl RDW Coeff of Dequan (11.0-15.0) % Plt Count (150-400) K/uL MPV (7.40-12.00) fL Neut % (Auto) (48.0-80.0) % Lymph % (Auto) (16.0-40.0) % Pickens % (Auto) (0.0-15.0) % Eos % (Auto) (0.0-7.0) % Baso % (Auto) (0.0-1.5) % Neut # (Auto) (1.4-5.7) K/uL Lymph # (Auto) (0.6-2.4) K/uL Pickens # (Auto) (0.0-0.8) K/uL Eos # (Auto) (0.0-0.7) K/uL Baso # (Auto) (0.0-0.1) K/uL Nucleated RBC % /100WBC Nucleated RBCs # K/uL Sodium (136-145) mmol/L Potassium (3.5-5.1) mmol/L Chloride (98-107) mmol/L Carbon Dioxide (21.0-32.0) mmol/L BUN (7.0-18.0) mg/dL Creatinine (0.6-1.0) mg/dL Est Cr Clr Drug Dosing mL/min Estimated GFR (MDRD) ml/min Glucose (74-106) mg/dL POC Glucose 102 (60-110) mg/dL Calcium (8.5-10.1) mg/dL HCG, Qual (NEG) Blood Type Antibody Screen Crossmatch Med Orders - Current: Current Medications Dextrose/Water (Dextrose 50% In Water) 50 ml IVPUSH ASDIRECTED PRN PRN Reason: Hypoglycemia Glucagon (Glucagen) 1 mg IM ASDIRECTED PRN PRN Reason: Hypoglycemia Insulin Aspart (Novolog) 0 unit SUBCUT TIDAC [facility]; Protocol Last Admin: 04/09/20 08:19 Dose: Not Given Documented by: Medroxyprogesterone Acetate (Provera) 5 mg PO TID [facility] Last Admin: 04/09/20 05:23 Dose: 5 mg Documented by: Ondansetron HCl (Zofran) 4 mg IVPUSH Q4H PRN PRN Reason: Nausea Last Admin: 04/08/20 14:00 Dose: 4 mg Documented by: Discontinued Medications Dexamethasone (Dexamethasone) Confirm Administered Dose 20 mg .ROUTE .STK-MED ONE Stop: 04/08/20 13:06 Fentanyl (Sublimaze) Confirm Administered Dose 100 mcg .ROUTE .STK-MED ONE Stop: 04/08/20 13:06 Hydromorphone HCl (Dilaudid) Confirm Administered Dose 2 mg .ROUTE .STK-MED ONE Stop: 04/08/20 13:20 Hydromorphone HCl (Dilaudid) 1 mg IVPUSH ONETIME ONE Stop: 04/08/20 17:24 Last Admin: 04/08/20 17:33 Dose: 1 mg Documented by: Hydromorphone HCl (Dilaudid) Confirm Administered Dose 2 mg .ROUTE .STK-MED ONE Stop: 04/08/20 17:31 Lactated Ringer's (Ringers, Lactated) 1,000 mls @ 999 mls/hr IV .BOLUS ONE Stop: 04/07/20 22:35 Last Admin: 04/07/20 22:08 Dose: 999 mls/hr Documented by: Tranexamic Acid 1,000 mg/ (Sodium Chloride) 110 mls @ 660 mls/hr IV ONETIME ONE Stop: 04/07/20 21:46 Last Admin: 04/07/20 22:08 Dose: 660 mls/hr Documented by: Tranexamic Acid 1,000 mg/ (Sodium Chloride) 110 mls @ 600 mls/hr IV ONETIME ONE Stop: 04/08/20 14:10 Last Admin: 04/08/20 14:32 Dose: 600 mls/hr Documented by: Acetaminophen (Ofirmev 1000 Mg/100 Ml) Confirm Administered Dose 100 mls @ as directed .ROUTE .STK-MED ONE Stop: 04/08/20 15:38 Lidocaine (Xylocaine-Mpf 2%) Confirm Administered Dose 5 ml .ROUTE .STK-MED ONE Stop: 04/08/20 13:06 Midazolam HCl (Versed 1 Mg/Ml) Confirm Administered Dose 2 mg .ROUTE .STK-MED ONE Stop: 04/08/20 15:44 Ondansetron HCl (Zofran) 4 mg IVPUSH ONETIME ONE Stop: 04/07/20 22:32 Last Admin: 04/07/20 22:38 Dose: 4 mg Documented by: Ondansetron HCl (Zofran) Confirm Administered Dose 4 mg .ROUTE .STK-MED ONE Stop: 04/08/20 13:06 Propofol (Diprivan 20 Ml) Confirm Administered Dose 200 mg .ROUTE .STK-MED ONE Stop: 04/08/20 13:06 <Porter Larios - Last Filed: 04/11/20 12:15> Discharge Summary - Referral to Home Health Primary Care Physician: PCP None - Patient Summary/Data Consults: Consultations 04/08/20 08:56 Consult to Physician [CONS] Routine - Patient Data Vitals - Most Recent: Last Vital Signs Temp 36.5 C 04/09/20 08:00 Pulse 96 04/08/20 17:53 Resp 15 04/09/20 11:00 BP 121/76 04/09/20 11:00 Pulse Ox 100 04/09/20 11:00 Med Orders - Current: Current Medications Discontinued Medications Dexamethasone (Dexamethasone) Confirm Administered Dose 20 mg .ROUTE .STK-MED ONE Stop: 04/08/20 13:06 Dextrose/Water (Dextrose 50% In Water) 50 ml IVPUSH ASDIRECTED PRN PRN Reason: Hypoglycemia Fentanyl (Sublimaze) Confirm Administered Dose 100 mcg .ROUTE .STK-MED ONE Stop: 04/08/20 13:06 Glucagon (Glucagen) 1 mg IM ASDIRECTED PRN PRN Reason: Hypoglycemia Hydromorphone HCl (Dilaudid) Confirm Administered Dose 2 mg .ROUTE .STK-MED ONE Stop: 04/08/20 13:20 Hydromorphone HCl (Dilaudid) 1 mg IVPUSH ONETIME ONE Stop: 04/08/20 17:24 Last Admin: 04/08/20 17:33 Dose: 1 mg Documented by: Hydromorphone HCl (Dilaudid) Confirm Administered Dose 2 mg .ROUTE .STK-MED ONE Stop: 04/08/20 17:31 Lactated Ringer's (Ringers, Lactated) 1,000 mls @ 999 mls/hr IV .BOLUS ONE Stop: 04/07/20 22:35 Last Admin: 04/07/20 22:08 Dose: 999 mls/hr Documented by: Tranexamic Acid 1,000 mg/ (Sodium Chloride) 110 mls @ 660 mls/hr IV ONETIME ONE Stop: 04/07/20 21:46 Last Admin: 04/07/20 22:08 Dose: 660 mls/hr Documented by: Tranexamic Acid 1,000 mg/ (Sodium Chloride) 110 mls @ 600 mls/hr IV ONETIME ONE Stop: 04/08/20 14:10 Last Admin: 04/08/20 14:32 Dose: 600 mls/hr Documented by: Acetaminophen (Ofirmev 1000 Mg/100 Ml) Confirm Administered Dose 100 mls @ as directed .ROUTE .STK-MED ONE Stop: 04/08/20 15:38 Insulin Aspart (Novolog) 0 unit SUBCUT TIDAC [facility]; Protocol Last Admin: 04/09/20 08:19 Dose: Not Given Documented by: Lidocaine (Xylocaine-Mpf 2%) Confirm Administered Dose 5 ml .ROUTE .STK-MED ONE Stop: 04/08/20 13:06 Medroxyprogesterone Acetate (Provera) 5 mg PO TID [facility] Last Admin: 04/09/20 05:23 Dose: 5 mg Documented by: Midazolam HCl (Versed 1 Mg/Ml) Confirm Administered Dose 2 mg .ROUTE .STK-MED ONE Stop: 04/08/20 15:44 Ondansetron HCl (Zofran) 4 mg IVPUSH ONETIME ONE Stop: 04/07/20 22:32 Last Admin: 04/07/20 22:38 Dose: 4 mg Documented by: Ondansetron HCl (Zofran) 4 mg IVPUSH Q4H PRN PRN Reason: Nausea Last Admin: 04/08/20 14:00 Dose: 4 mg Documented by: Ondansetron HCl (Zofran) Confirm Administered Dose 4 mg .ROUTE .STK-MED ONE Stop: 04/08/20 13:06 Propofol (Diprivan 20 Ml) Confirm Administered Dose 200 mg .ROUTE .STK-MED ONE Stop: 04/08/20 13:06 - Free Text/Narrative Note: I have seen and evaluated the patient with the resident. I have discussed findings and treatment plan with resident. I agree with the assessment and plan as documented in the following note.
--- NOTE | 2020-04-09 17:20 | PCM.SN.2 ---
- Free Text/Narrative Note: Patient seen at bedside , she denies any complains today She had 1 lightly stained pad over night , she has good pain control Exam: General: NAD Chest: CTA BL CVS: S1 S2 no murmurs Abdomen: normal appearance , non distended , flat , no tenderness on deep and superficial palpation Pelvic : Normal , scant dark blood on pad VSS: 121/76 , HR: 81 A/P 30yo P0 s/p Hysteroscopy D & C for AUB -Iatrogenic ( anticoagulation), POD 1 Acute blood loss anaemia , s/p 4UPRBC and 1 FFP Plan Discharge home Recommend she resume noerthindrone cascade Follow up with hematology Follow up in clinic in 1 week Iron supplementation
== END 2020-04-09 11:58 | disposition home or self-care (01) | DRG 744 ==
LOC: MW.ED 21:16 → MW.ICU 23:50
PROVIDERS: ADMIT Internal Medicine; ATTEND Internal Medicine
PROC: 0UDB8ZZ Extraction of Endometrium, Via Natural or Artificial Opening Endoscopic (ICD-10-PCS; principal; 2020-04-07)
PROC: 30233K1 Transfusion of Nonautologous Frozen Plasma into Peripheral Vein, Percutaneous Approach (ICD-10-PCS; 2020-04-07)
PROC: 30233N1 Transfusion of Nonautologous Red Blood Cells into Peripheral Vein, Percutaneous Approach (ICD-10-PCS; 2020-04-07)
DX: N93.8 Other specified abnormal uterine and vaginal bleeding (principal); D68.59 Other primary thrombophilia; D62 Acute posthemorrhagic anemia; I10 Essential (primary) hypertension; F41.9 Anxiety disorder, unspecified; E66.9 Obesity, unspecified; G43.909 Migraine, unspecified, not intractable, without status migrainosus; E11.9 Type 2 diabetes mellitus without complications; Z79.899 Other long term (current) drug therapy; Z79.01 Long term (current) use of anticoagulants; Z86.73 Personal history of transient ischemic attack (TIA), and cerebral infarction without residual deficits; Z79.84 Long term (current) use of oral hypoglycemic drugs; Z79.82 Long term (current) use of aspirin; Z20.822 Contact with and (suspected) exposure to COVID-19
CPT/HCPCS: 00952; 36415; 36430; 80048; 80053; 82728; 82962; 83550; 83735; 84146; 84443; 84484; 84703; 85025; 85045; 85384; 85610; 85730; 86850; 86900; 86901; 86920; 86921; 86922; 93005; 96374; 96375; 99291; A9270-GY; J0131; J1100; J1170; J2250; J2405; J2704; J3010; J7120; P9016; P9017; U0002

== ENCOUNTER 2020-04-24 21:34 | Emergency (ER) | payer MEDICAID ==
[2020-04-24] MEDS ORDERED: Sodium Chloride 0.9% 2.5 ML Syringe FLUSH PRN (22:06)
[2020-04-24] MEDS ORDERED: Sodium Chloride 0.9% 10 ML Syringe FLUSH PRN (22:06)
[2020-04-24] MEDS ORDERED: Sodium Chloride 0.9% 1,000 ML IV ONE (22:06)
[2020-04-24] MEDS ORDERED: Ondansetron 4 MG/2 ML SDV IVPUSH ONE (22:06)
[2020-04-24] MEDS ORDERED: Ketorolac 30 MG/ML SDV IVPUSH ONE (22:06)
[2020-04-24 22:47] LABS: BLOOD UREA NITROGEN,BUN 9 mg/dL (7.0-18.0); CARBON DIOXIDE,CO2 24.8 mmol/L (21.0-32.0); CHLORIDE,CL 103 mmol/L (98-107); GLUCOSE RANDOM 129 mg/dL (74-106); LIPASE 97 U/L (73-393); POTASSIUM,K 3.6 mmol/L (3.5-5.1); SODIUM,NA 139 mmol/L (136-145)
--- NOTE | 2020-04-24 23:34 | CT ---
INDICATION: Abdominal pain, status post D and C TECHNIQUE: CT Abdomen and pelvis without i.v. contrast. Coronal and sagittal reformats were obtained. COMPARISON: None FINDINGS: Lower chest: Unremarkable. Liver: Unremarkable. Spleen: Unremarkable. Pancreas: Unremarkable. Gallbladder: There is a 2.7 cm gallstone present in the gallbladder neck with minimal gallbladder wall edema seen. Kidney: Cortical scarring is seen in the right kidney. The left kidney is unremarkable in appearance. Adrenal: Unremarkable. Bowel: Mild fluid distention of the rectosigmoid colon is present. The appendix is normal in appearance and size. Vascular: Unremarkable. Lymph: Unremarkable. Peritoneum: Unremarkable. No pneumoperitoneum is seen. No significant ascites is noted. Pelvis: The uterus is unremarkable in appearance with no evidence of contour deformity or internal gas. Soft tissue: Unremarkable. Bone: Unremarkable for age. IMPRESSION: 1. There is a 2.7 cm gallstone present in the gallbladder neck with minimal gallbladder wall edema seen. If there is right upper quadrant pain and tenderness, assessment with ultrasound is recommended to exclude acute cholecystitis. Dictated by Christiano Patel MD @ 04/24/2020 11:28:06 PM Please note that all CT scans at this facility use dose modulation, iterative reconstruction, and/or weight-based dosing when appropriate to reduce radiation dose to as low as reasonably achievable. Dictated by: Christiano Patel MD @ 04/24/2020 23:32:23 (Electronically Signed)
[2020-04-24] MEDS ORDERED: Dicyclomine 10 MG Cap PO ONE (23:53)
[2020-04-24] MEDS ORDERED: HYDROmorphone 1 MG/ML Syringe IVPUSH ONE (23:54)
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
== END 2020-04-25 00:37 | disposition home or self-care (01) ==
LOC: MW.ED 21:34
DX: K80.70 Calculus of gallbladder and bile duct without cholecystitis without obstruction (principal); I10 Essential (primary) hypertension; E11.9 Type 2 diabetes mellitus without complications; Z79.84 Long term (current) use of oral hypoglycemic drugs; E66.9 Obesity, unspecified; Z68.28 Body mass index [BMI] 28.0-28.9, adult
CPT/HCPCS: 36415; 74176; 80053; 81001; 81025; 83690; 85025; 96374; 96375; 99284; A9270; J1170; J1885; J2405; J7030; 99283

== ENCOUNTER 2020-06-12 10:10 | Day surgery (SDC) | payer MEDICAID ==
[~2020-06-12 10:10] MED LIST: Sodium Chloride 0.9% 10 ML SDV IV PRN; Sodium Chloride 0.9% 10 ML Syringe FLUSH PRN; ceFAZolin 2 GM in Premix Bag 1 BAG IV ONE
[2020-06-12] MEDS ORDERED: Midazolam 1 MG/ML 2 ML SDV ONE (10:38)
[2020-06-12] MEDS ORDERED: Propofol 200 MG/20 ML SDV ONE (10:38)
[2020-06-12] MEDS ORDERED: fentaNYL 250 MCG/5 ML SDV ONE (10:39)
[2020-06-12] MEDS ORDERED: Ondansetron 4 MG/2 ML SDV ONE (10:40)
[2020-06-12] MEDS ORDERED: Dexamethasone 4 MG/ML 5 ML MDV ONE (10:40)
[2020-06-12] MEDS ORDERED: Succinylcholine/Sod PF 100 MG/5 ML SYRINGE IV ONE (10:41)
[2020-06-12] MEDS ORDERED: Rocuronium Bromide 50 MG/5 ML Syringe ONE (10:41)
[2020-06-12] MEDS ORDERED: Sugammadex Sodium 200 MG/2 ML VIAL ONE (10:42)
[2020-06-12] MEDS ORDERED: Octyl 2-Cyanoacrylate 1 Tube ONE (11:11)
[2020-06-12] MEDS ORDERED: Bupivacaine 0.5% 30 ML SDV ONE (11:11)
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
[2020-06-12] MEDS: Lactated Ringers 1,000 ML IV SCH ×2 (11:14→17:41)
[2020-06-12] MEDS ORDERED: HYDROmorphone 2 MG/ML Syringe ONE (12:56)
[2020-06-12] MEDS ORDERED: Sodium Chloride 0.9% 20 ML ONE (12:56)
[2020-06-12] MEDS ORDERED: Metoprolol Tartrate 5 MG/5 ML SDV ONE (13:23)
[2020-06-12] MEDS ORDERED: fentaNYL 100 MCG/2 ML SDV ONE (15:11)
--- NOTE | 2020-06-12 15:48 | PCM.OPNOTE ---
- General Post-Op/Procedure Note Date of Surgery/Procedure: 06/12/20 Operative Procedure(s): Laparoscopic cholecystectomy Findings: Severely inflamed and thickened gallbladder with a very short cystic duct. Distal half intrahepatic. Proximal gallbladder attached to the common bile duct. Anatomy confirmed with indocyanine green. Distal back wall of gallbladder left in place. cystic duct closed with endoloops. Pre Op Diagnosis: Symptomatic cholelithiasis Post-Op Diagnosis: Acute on chronic cholecystitis due to biliary calculus Anesthesia Technique: General ET Tube Primary Surgeon: Harleen Woodward Pathology: gallbladder Fluid Replacement, Intraop: 1,800 Output, Urine Amount: 500 EBL in mLs: 200 Surgical Drain/Tube Type: Hugo Drain Condition: Good Free Text/Narrative:: Intake & Output 06/12/20 06/12/20 06/12/20 06:59 14:59 22:59 Output Total 500 Balance -500
[2020-06-12] MEDS ORDERED: HYDROmorphone 2 MG/ML Syringe IVPUSH PRN (15:49)
[2020-06-12] MEDS ORDERED: Cyclobenzaprine 5 MG Tab PO PRN (16:00)
--- NOTE | 2020-06-12 16:29 | PCM.POSTAN ---
POST ANESTHESIA ASSESSMENT - MENTAL STATUS Mental Status: Alert (na anesthetic problems), Oriented - VITAL SIGNS Vital Signs: Last Vital Signs Temp 98.2 F 06/12/20 15:41 Pulse 97 06/12/20 16:27 Resp 14 06/12/20 16:27 BP 122/81 06/12/20 16:27 Pulse Ox 93 L 06/12/20 16:27 - RESPIRATORY Respiratory Status: Respiratory Rate WNL, Airway Patent, O2 Saturation Stable - CARDIOVASCULAR CV Status: Pulse Rate WNL, Blood Pressure Stable - GASTROINTESTINAL GI Status: No Symptoms - POST OP HYDRATION Hydration Status: Adequate & Stable
[2020-06-12] MEDS ORDERED: Ondansetron 4 MG/2 ML SDV IVPUSH PRN (16:37)
[2020-06-12] MEDS: Ketorolac 30 MG/ML SDV IVPUSH SCH ×3 (17:29→22:30)
[2020-06-12] MEDS: Acetaminophen/oxyCODONE 325-5 MG Tab PO PRN ×2 (20:47→21:30)
--- NOTE | 2020-06-12 21:00 | OR ---
SURGEON: HARLEEN VARGAS MD DATE OF PROCEDURE: 06/12/2020 PREOPERATIVE DIAGNOSIS: Symptomatic cholelithiasis. POSTOPERATIVE DIAGNOSIS: Acute on chronic cholecystitis due to biliary calculus. PROCEDURE PERFORMED: Laparoscopic cholecystectomy. PRIMARY SURGEON: Harleen Vargas MD. SECONDARY SURGEON: Olegario Larios MD. ANESTHESIA: General endotracheal anesthesia. FLUIDS: 1800 mL of crystalloid. ESTIMATED BLOOD LOSS: 200 mL. URINE OUTPUT: 500 mL. FINDINGS: Severely inflamed and thickened gallbladder with a very short cystic duct. Distal half of the gallbladder was intrahepatic. Proximal gallbladder adhered to the common bile duct. Anatomy confirmed with indocyanine green. Distal back wall of the gallbladder left in place. Cystic duct closed with ENDOLOOP. COMPLICATIONS: None. INDICATIONS: The patient is a 30-year-old female who presented to clinic with symptomatic cholelithiasis. An ultrasound confirmed a large gallstone within the gallbladder. There were no signs of acute inflammation. The patient and I discussed the need for a laparoscopic, possible open cholecystectomy. I explained the procedure, expected perioperative course as well as the risks. She verbalized understanding and wishes to proceed. PROCEDURE IN DETAIL: The patient was brought into the OR and placed on the OR table in the supine position. A time-out was completed verifying the patient's name, age, date of , allergies, and procedure to be performed. General endotracheal anesthesia was induced. The left arm was tucked at the patient's side, and a Hancock catheter placed. The abdomen was prepped and draped in the usual standard fashion. I anesthetized the infraumbilical fold with 0.5% Marcaine plain. An 11 blade was used to make an incision along this fold. Cautery was used to dissect down to the subcutaneous fat layer. I then bluntly dissected down to the fascia. The fascia was elevated with Joel's and incised sharply with curved Richardson scissors. I then grasped the posterior fascia and incised this as well. I then bluntly entered the peritoneum using a hemostat. I dilated up the tract using my finger. A 12 mm Tova trocar was placed into the abdomen and the abdomen was insufflated. I inserted a 5 mm 30 degrees scope. I inspected the area underneath my initial trocar placement, and no damage to surrounding structures was noted. The patient was placed into reverse Trendelenburg position and airplaned slightly to the left. 5 mm trocars were placed in the following locations under direct visualization; one in the epigastric area, one in the right flank, and one 2 fingerbreadths below the right subcostal margin in the midclavicular line. The gallbladder appeared severely inflamed upon first inspection. I grasped the gallbladder and attempted to elevated it. However, the gallbladder was adhered or had inflammatory adhesions to the surrounding omentum. Using a suction catheter, I was able to sweep down the majority of these. Some of the fine wispy adhesions were taken down with electrocautery. When I got to the proximal half of the gallbladder, I could see that the patient had a very short cystic duct. The gallbladder itself was densely adhered to the common bile duct and surrounding structures. Because of this, I began my dissection in the area using endoscopic Kittners and gentle suction. Eventually, I was able to separate the gallbladder from the common bile duct and continue my dissection to identify my cystic duct and cystic artery. Great care was taken to avoid damage to the surrounding structures. I was able to then pass a [place] between my short cystic duct and what appeared to be the cystic artery. Indocyanine green was injected during the case. Doing this, I was able to identify the artery and confirm my anatomy. Multiple photographs of this were taken. I then continued my dissection up the cystic plate. The gallbladder was densely attached to the cystic plate, but with gentle blunt dissection, I was able to separate the gallbladder enough to obtain a critical view. A photograph of this was taken. The cystic duct was short and quite thick. It was too thick to allow a 5 mm clip to come across it. I doubly clipped and ligated my cystic artery, which was quite short and came directly off the right hepatic artery. By doing this, it was felt I could have more mobility and could possibly pass an endoscopic stapling device through the area. In order to facilitate an endoscopic stapler being brought into the field, a 12 mm trocar was placed under direct visualization in the left upper quadrant. An endoscopic stapling device was brought into the field. However, given how short the cystic duct was, it was felt that this would be too aggressive and potentially risk of damaging the surrounding structures. Dr. Olegario Larios was called into the case to assist me in both identifying the anatomy and to help with operative planning. A Harmonic Scalpel was brought into the field, and we were able to take down more of the proximal cystic plate. The decision was made to transect the gallbladder in half and then to place Endoloops on the short cystic duct. Using a Harmonic Scalpel device, we were able to cut the gallbladder in half. The proximal half of the gallbladder was grasped and Endoloops were then placed on the cystic duct. We then used an endoscopic evon to transect the proximal gallbladder from the cystic duct above the Endoloops. A large stone was noted within the gallbladder. The stone in the proximal half of the gallbladder was then placed in an Endo Catch bag and removed through the 12 mm port in the left upper quadrant. The port was replaced. We attempted to continue our dissection of the distal half of the gallbladder. However, the distal half of the gallbladder was partially intrahepatic and was densely adhered to the cystic plate. The decision was made to leave the back wall of the gallbladder. This was performed and the transected piece of the distal half of the gallbladder was placed in an Endo Catch bag and removed again through the 12 mm left upper quadrant site. The back wall of the gallbladder that was left in place was cauterized thoroughly. I then irrigated the abdomen with 2 L of normal saline and suctioned this out. Endoscopic Bibi was then placed within my operative site. We closely inspected the operative field, and there was no evidence of bile leakage. The Endoloops appeared to be in good position. The clips on the cystic artery were in place, and there was no evidence of bleeding there or within the rest of the liver bed. A photograph of this was taken. I then removed the 12 mm left upper quadrant port and closed the fascia at this site using an interrupted 0 Vicryl suture with a Yury-Terence device. A 19-Bengali Hugo drain was placed within the liver bed and brought out through the right lateral port site. It was secured in place with an interrupted 2-0 nylon suture. The 5 mm trocars were then removed under direct visualization, and the abdomen allowed to desufflate. The 12 mm Tova trocar was then removed as well. I closed the fascia at the 12 mm infraumbilical site with interrupted 0 Vicryl sutures. The subcutaneous fat layer was closed with interrupted 3-0 Vicryl stitches. The skin was closed with a running 4-0 Monocryl stitch. The left upper quadrant site was closed with interrupted 3-0 Vicryl stitches in the subcutaneous fat layer and the skin was closed with a running 4-0 Monocryl stitch. The 5 mm trocar sites were then closed with interrupted 4-0 Monocryl sutures. Dermabond and sterile dressings were applied. A drain sponge was placed over the drain. The patient tolerated the procedure well and was extubated and taken to PACU in stable condition. All counts were complete and correct at the end of the case. The patient's postoperative hemoglobin was 9.9. We will admit the patient overnight for close monitoring. VIKY / MAN /[id number]
[2020-06-13] MEDS: Ketorolac 30 MG/ML SDV IVPUSH SCH ×2 (03:30→10:20)
[2020-06-13] MEDS: Acetaminophen/oxyCODONE 325-5 MG Tab PO PRN ×2 (03:40→08:56)
[2020-06-13 06:30] LABS: BLOOD UREA NITROGEN,BUN 10 mg/dL (7.0-18.0); CARBON DIOXIDE,CO2 22.8 mmol/L (21.0-32.0); CHLORIDE,CL 107 mmol/L (98-107); GLUCOSE RANDOM 117 mg/dL (74-106); POTASSIUM,K 3.9 mmol/L (3.5-5.1); SODIUM,NA 140 mmol/L (136-145)
--- NOTE | 2020-06-13 06:55 | PCM.POSTAN ---
POST ANESTHESIA ASSESSMENT - MENTAL STATUS Mental Status: Alert (states her night was long but that she is doing well), O riented - VITAL SIGNS Vital Signs: Last Vital Signs Temp 36.6 C 06/13/20 03:34 Pulse 82 06/13/20 03:34 Resp 14 06/13/20 03:34 BP 135/88 06/13/20 03:34 Pulse Ox 98 06/13/20 03:34 - RESPIRATORY Respiratory Status: Respiratory Rate WNL, Airway Patent, O2 Saturation Stable - CARDIOVASCULAR CV Status: Pulse Rate WNL, Blood Pressure Stable - GASTROINTESTINAL GI Status: No Symptoms - POST OP HYDRATION Hydration Status: Adequate & Stable
--- NOTE | 2020-06-13 06:56 | PCM48HPAN ---
Post Anesthesia Note - EVALUATION WITHIN 48HRS OF ANESTHETIC Vital Signs in Normal Range: Yes Patient Participated in Evaluation: Yes Respiratory Function Stable: Yes Airway Patent: Yes Cardiovascular Function Stable: Yes Hydration Status Stable: Yes Pain Control Satisfactory: Yes Nausea and Vomiting Control Satisfactory: Yes Mental Status Recovered: Yes Vital Signs: Last Vital Signs Temp 36.6 C 06/13/20 03:34 Pulse 82 06/13/20 03:34 Resp 14 06/13/20 03:34 BP 135/88 06/13/20 03:34 Pulse Ox 98 06/13/20 03:34 - COMMENTS/OBSERVATIONS Free Text/Narrative:: states her night was long but that she is doing well
[2020-06-13] MEDS ORDERED: amLODIPine 5 MG Tab PO SCH (09:00)
[2020-06-13] MEDS ORDERED: metFORMIN 500 MG Tab PO SCH (09:00)
[2020-06-13] MEDS ORDERED: atorvaSTATin 40 MG Tab PO SCH (09:00)
[2020-06-13] MEDS: Sodium Chloride 0.9% 2.5 ML Syringe FLUSH PRN ×2 (09:03→10:21)
--- NOTE | 2020-06-13 09:51 | PCM.SURGPN ---
- General Info Date of Service: 06/13/20 Date of Surgery/Procedure: 06/12/20 POD#: 1 Functional Status: Reports: Pain Controlled, Tolerating Diet, Ambulating, Urinating - Review of Systems General: Reports: Fatigue HEENT: Reports: No Symptoms Pulmonary: Reports: No Symptoms Cardiovascular: Reports: No Symptoms Gastrointestinal: Reports: No Symptoms Genitourinary: Reports: No Symptoms Musculoskeletal: Reports: No Symptoms Skin: Reports: No Symptoms - Patient Data Vitals - Most Recent: Last Vital Signs Temp 36.7 C 06/13/20 08:22 Pulse 62 06/13/20 08:22 Resp 16 06/13/20 08:22 BP 118/71 06/13/20 08:55 Pulse Ox 95 06/13/20 08:22 Weight - Most Recent: 80.286 kg I&O - Last 24 Hours: Intake & Output 06/12/20 06/13/20 06/13/20 22:59 06:59 14:59 Intake Total 3750 1350 Output Total 500 1760 Balance 3250 -410 Lab Results Last 24 Hrs: Laboratory Results - last 24 hr 06/12/20 06/12/20 06/12/20 Range/Units 10:20 10:29 14:59 WBC 5.44 (4.0-11.0) K/uL RBC 4.89 (4.30-5.90) M/uL Hgb 10.2 L 9.9 L (12.0-16.0) g/dL Hct 34.6 L (36.0-46.0) % MCV 70.8 L (80.0-98.0) fL MCH 20.9 L (27.0-32.0) pg MCHC 29.5 L (31.0-37.0) g/dL RDW Std Deviation 46.2 (28.0-62.0) fl RDW Coeff of Dequan 18 H (11.0-15.0) % Plt Count 248 (150-400) K/uL Neut % (Auto) 59.7 (48.0-80.0) % Lymph % (Auto) 28.9 (16.0-40.0) % [place] % (Auto) 9.2 (0.0-15.0) % Eos % (Auto) 2.0 (0.0-7.0) % Baso % (Auto) 0.2 (0.0-1.5) % Neut # (Auto) 3.3 (1.4-5.7) K/uL Lymph # (Auto) 1.6 (0.6-2.4) K/uL [place] # (Auto) 0.5 (0.0-0.8) K/uL Eos # (Auto) 0.1 (0.0-0.7) K/uL Baso # (Auto) 0.0 (0.0-0.1) K/uL Nucleated RBC % 0.0 /100WBC Nucleated RBCs # 0 K/uL Sodium (136-145) mmol/L Potassium (3.5-5.1) mmol/L Chloride (98-107) mmol/L Carbon Dioxide (21.0-32.0) mmol/L BUN (7.0-18.0) mg/dL Creatinine (0.6-1.0) mg/dL Est Cr Clr Drug Dosing mL/min Estimated GFR (MDRD) ml/min Glucose (74-106) mg/dL Calcium (8.5-10.1) mg/dL Total Bilirubin (0.2-1.0) mg/dL AST (15-37) IU/L ALT (14-63) IU/L Alkaline Phosphatase (46-116) U/L Total Protein (6.4-8.2) g/dL Albumin (3.4-5.0) g/dL Globulin (2.6-4.0) g/dL Albumin/Globulin Ratio (0.9-1.6) Urine HCG, Qual NEGATIVE (NEGATIVE) Blood Type Antibody Screen 06/12/20 06/12/20 06/13/20 Range/Units 14:59 20:13 05:22 WBC 8.97 (4.0-11.0) K/uL RBC 4.20 L (4.30-5.90) M/uL Hgb 9.6 L 8.7 L (12.0-16.0) g/dL Hct 32.7 L 29.5 L (36.0-46.0) % MCV 70.2 L (80.0-98.0) fL MCH 20.7 L (27.0-32.0) pg MCHC 29.5 L (31.0-37.0) g/dL RDW Std Deviation 45.8 (28.0-62.0) fl RDW Coeff of Dequan 18 H (11.0-15.0) % Plt Count 269 (150-400) K/uL Neut % (Auto) (48.0-80.0) % Lymph % (Auto) (16.0-40.0) % [place] % (Auto) (0.0-15.0) % Eos % (Auto) (0.0-7.0) % Baso % (Auto) (0.0-1.5) % Neut # (Auto) (1.4-5.7) K/uL Lymph # (Auto) (0.6-2.4) K/uL [place] # (Auto) (0.0-0.8) K/uL Eos # (Auto) (0.0-0.7) K/uL Baso # (Auto) (0.0-0.1) K/uL Nucleated RBC % 0.0 /100WBC Nucleated RBCs # 0 K/uL Sodium (136-145) mmol/L Potassium (3.5-5.1) mmol/L Chloride (98-107) mmol/L Carbon Dioxide (21.0-32.0) mmol/L BUN (7.0-18.0) mg/dL Creatinine (0.6-1.0) mg/dL Est Cr Clr Drug Dosing mL/min Estimated GFR (MDRD) ml/min Glucose (74-106) mg/dL Calcium (8.5-10.1) mg/dL Total Bilirubin (0.2-1.0) mg/dL AST (15-37) IU/L ALT (14-63) IU/L Alkaline Phosphatase (46-116) U/L Total Protein (6.4-8.2) g/dL Albumin (3.4-5.0) g/dL Globulin (2.6-4.0) g/dL Albumin/Globulin Ratio (0.9-1.6) Urine HCG, Qual (NEGATIVE) Blood Type A POSITIVE Antibody Screen NEGATIVE 06/13/20 Range/Units 05:22 WBC (4.0-11.0) K/uL RBC (4.30-5.90) M/uL Hgb (12.0-16.0) g/dL Hct (36.0-46.0) % MCV (80.0-98.0) fL MCH (27.0-32.0) pg MCHC (31.0-37.0) g/dL RDW Std Deviation (28.0-62.0) fl RDW Coeff of Dequan (11.0-15.0) % Plt Count (150-400) K/uL Neut % (Auto) (48.0-80.0) % Lymph % (Auto) (16.0-40.0) % [place] % (Auto) (0.0-15.0) % Eos % (Auto) (0.0-7.0) % Baso % (Auto) (0.0-1.5) % Neut # (Auto) (1.4-5.7) K/uL Lymph # (Auto) (0.6-2.4) K/uL [place] # (Auto) (0.0-0.8) K/uL Eos # (Auto) (0.0-0.7) K/uL Baso # (Auto) (0.0-0.1) K/uL Nucleated RBC % /100WBC Nucleated RBCs # K/uL Sodium 140 (136-145) mmol/L Potassium 3.9 (3.5-5.1) mmol/L Chloride 107 (98-107) mmol/L Carbon Dioxide 22.8 (21.0-32.0) mmol/L BUN 10 (7.0-18.0) mg/dL Creatinine 0.8 (0.6-1.0) mg/dL Est Cr Clr Drug Dosing 91.68 mL/min Estimated GFR (MDRD) > 60.0 ml/min Glucose 117 H (74-106) mg/dL Calcium 7.8 L (8.5-10.1) mg/dL Total Bilirubin 0.6 (0.2-1.0) mg/dL AST 24 (15-37) IU/L ALT 45 (14-63) IU/L Alkaline Phosphatase 48 (46-116) U/L Total Protein 6.3 L (6.4-8.2) g/dL Albumin 3.2 L (3.4-5.0) g/dL Globulin 3.1 (2.6-4.0) g/dL Albumin/Globulin Ratio 1.0 (0.9-1.6) Urine HCG, Qual (NEGATIVE) Blood Type Antibody Screen Med Orders - Current: Current Medications Amlodipine Besylate (Amlodipine 5 Mg Tab) 10 mg PO DAILY [facility] Last Admin: 06/13/20 08:55 Dose: 10 mg Documented by: Atorvastatin Calcium (Atorvastatin 40 Mg Tab) 80 mg PO DAILY [facility] Last Admin: 06/13/20 08:55 Dose: 80 mg Documented by: Cyclobenzaprine HCl (Cyclobenzaprine 5 Mg Tab) 5 mg PO TID PRN PRN Reason: Pain Hydromorphone HCl (Hydromorphone 2 Mg/Ml Syringe) 0.5 mg IVPUSH Q1H PRN PRN Reason: Pain (severe 7-10) Ketorolac Tromethamine (Ketorolac 30 Mg/Ml Sdv) 15 mg IVPUSH Q6H [facility] Stop: 06/13/20 10:01 Last Admin: 06/13/20 03:30 Dose: 15 mg Documented by: Metformin HCl (Metformin 500 Mg Tab) 500 mg PO DAILY [facility] Last Admin: 06/13/20 08:56 Dose: 500 mg Documented by: Ondansetron HCl (Ondansetron 4 Mg/2 Ml Sdv) 4 mg IVPUSH Q6H PRN PRN Reason: Nausea/Vomiting Oxycodone/Acetaminophen (Acetaminophen/Oxycodone 325-5 Mg Tab) 2 tab PO Q4H PRN PRN Reason: Pain (moderate 4-6) Last Admin: 06/13/20 08:56 Dose: 2 tab Documented by: Sodium Chloride (Sodium Chloride 0.9% 2.5 Ml Syringe) 2.5 ml FLUSH ASDIRECTED PRN PRN Reason: Keep Vein Open Last Admin: 06/13/20 09:03 Dose: 2.5 ml Documented by: Sodium Chloride (Sodium Chloride 0.9% 10 Ml Sdv) 10 ml IV ASDIRECTED PRN PRN Reason: IV Use Sodium Chloride (Sodium Chloride 0.9% 10 Ml Syringe) 10 ml FLUSH ASDIRECTED PRN PRN Reason: Keep Vein Open Discontinued Medications Bupivacaine HCl (Bupivacaine 0.5% 30 Ml Sdv) Confirm Administered Dose 30 ml .ROUTE .STK-MED ONE Stop: 06/12/20 11:12 Dexamethasone (Dexamethasone 4 Mg/Ml 5 Ml Mdv) Confirm Administered Dose 20 mg .ROUTE .STK-MED ONE Stop: 06/12/20 10:41 Fentanyl (Fentanyl 250 Mcg/5 Ml Sdv) Confirm Administered Dose 250 mcg .ROUTE .ST-MED ONE Stop: 06/12/20 10:40 Fentanyl (Fentanyl 100 Mcg/2 Ml Sdv) Confirm Administered Dose 100 mcg .ROUTE .STK-MED ONE Stop: 06/12/20 15:12 Hydromorphone HCl (Hydromorphone 2 Mg/Ml Syringe) Confirm Administered Dose 2 mg .ROUTE .ST-MED ONE Stop: 06/12/20 12:57 Lactated Ringer's (Ringers, Lactated) 1,000 mls @ 125 mls/hr IV ASDIRECTED JIMMIE Last Admin: 06/12/20 17:41 Dose: 125 mls/hr Documented by: Cefazolin Sodium/Dextrose 2 gm (/ Premix) 50 mls @ 100 mls/hr IV ONETIME ONE Stop: 06/09/20 09:04 Cefazolin Sodium/Dextrose (Ancef 2 Gm/50 Ml) Confirm Administered Dose 50 mls @ as directed .ROUTE .ST-MED ONE Stop: 06/12/20 10:43 Sodium Chloride (Normal Saline) Confirm Administered Dose 20 mls @ as directed .ROUTE .ST-MED ONE Stop: 06/12/20 12:57 Lidocaine HCl (Lidocaine 1% 5 Ml Sdv) Confirm Administered Dose 5 ml .ROUTE .ST-MED ONE Stop: 06/12/20 10:41 Metoprolol Tartrate (Metoprolol Tartrate 5 Mg/5 Ml Sdv) Confirm Administered Dose 5 mg .ROUTE .ST-MED ONE Stop: 06/12/20 13:24 Midazolam HCl (Midazolam 1 Mg/Ml 2 Ml Sdv) Confirm Administered Dose 2 mg .ROUTE .ST-MED ONE Stop: 06/12/20 10:39 Octyl Cyanoacrylate (Octyl 2-Cyanoacrylate 1 Tube) Confirm Administered Dose 1 applic .ROUTE .ST-MED ONE Stop: 06/12/20 11:12 Ondansetron HCl (Ondansetron 4 Mg/2 Ml Sdv) Confirm Administered Dose 4 mg .ROUTE .STK-MED ONE Stop: 06/12/20 10:41 Propofol (Propofol 200 Mg/20 Ml Sdv) Confirm Administered Dose 200 mg .ROUTE .STK-MED ONE Stop: 06/12/20 10:39 Rocuronium [place] (Rocuronium [place] 50 Mg/5 Ml Syringe) Confirm Administered Dose 50 mg .ROUTE .STK-MED ONE Stop: 06/12/20 10:42 Sugammadex Sodium (Sugammadex Sodium 200 Mg/2 Ml Vial) Confirm Administered Dose 200 mg .ROUTE .STK-MED ONE Stop: 06/12/20 10:43 - Exam Wound/Incisions: Healing Well, Drainage (serosnaguinous drainage on dressings over drain site. Drain with serosanguinous drainage. No bile staining in bulb. ) General: Alert, Oriented HEENT: Pupils Equal, Pupils Reactive Lungs: Normal Respiratory Effort Cardiovascular: Regular Rate GI/Abdominal Exam: Soft, Non-Tender, No Distention. No: Guarding, Rigid, Rebound Sepsis Event Note - Evaluation Sepsis Screening Result: No Definite Risk - Focused Exam Vital Signs: Vital Signs Temp Pulse Resp BP BP Pulse Ox 06/13/20 08:55 118/71 06/13/20 08:22 36.7 C 62 16 118/71 95 06/13/20 03:34 36.6 C 82 14 135/88 98 06/13/20 00:17 36.8 C 85 14 121/73 99 06/12/20 22:11 95 117/81 94 L 06/12/20 22:09 91 126/80 93 L - Problem List & Annotations (1) Acute on chronic cholecystitis concurrent with and due to calculus of gallbl adder and bile duct SNOMED Code(s): 38101748277392 Code(s): K80.66 - CALCULUS OF GB AND BILE DUCT W AC AND CHR CHOLECYST W/O OBST Status: Acute Current Visit: Yes - Problem List Review Problem List Initiated/Reviewed/Updated: Yes - My Orders Last 24 Hours: Active Orders 24 hr Category Date Time Status Oxygen Therapy [RC] PRN Care 06/12/20 15:49 Active RT Incentive Spirometry [RC] Q1HWA Care 06/12/20 15:49 Active Up ad Roma [RC] ASDIRECTED Care 06/12/20 15:49 Active Regular Diet [DIET] Diet 06/12/20 Dinner Active Acetaminophen/oxyCODONE [Percocet 325-5 MG] Med 06/12/20 15:49 Active 2 tab PO Q4H PRN Cyclobenzaprine [Flexeril] Med 06/12/20 16:00 Active 5 mg PO TID PRN HYDROmorphone [Dilaudid] Med 06/12/20 15:49 Active 0.5 mg IVPUSH Q1H PRN Ketorolac [Toradol] Med 06/12/20 16:00 Active 15 mg IVPUSH Q6H Ondansetron [Zofran] Med 06/12/20 16:37 Active 4 mg IVPUSH Q6H PRN amLODIPine [Norvasc] Med 06/13/20 09:00 Active 10 mg PO DAILY atorvaSTATin [Lipitor] Med 06/13/20 09:00 Active 80 mg PO DAILY metFORMIN [Glucophage] Med 06/13/20 09:00 Active 500 mg PO DAILY Abdominal Binder [OM.PC] Per Unit Routine Oth 06/12/20 15:49 Ordered Medication Orders Amlodipine Besylate (Amlodipine 5 Mg Tab) 10 mg PO DAILY [facility] Last Admin: 06/13/20 08:55 Dose: 10 mg Documented by: ANAIS Atorvastatin Calcium (Atorvastatin 40 Mg Tab) 80 mg PO DAILY [facility] Last Admin: 06/13/20 08:55 Dose: 80 mg Documented by: ANAIS Cyclobenzaprine HCl (Cyclobenzaprine 5 Mg Tab) 5 mg PO TID PRN PRN Reason: Pain Hydromorphone HCl (Hydromorphone 2 Mg/Ml Syringe) 0.5 mg IVPUSH Q1H PRN PRN Reason: Pain (severe 7-10) Ketorolac Tromethamine (Ketorolac 30 Mg/Ml Sdv) 15 mg IVPUSH Q6H [facility] Stop: 06/13/20 10:01 Last Admin: 06/13/20 03:30 Dose: 15 mg Documented by: Admin: 06/12/20 22:30 Dose: 15 mg Documented by: Admin: 06/12/20 18:31 Dose: 15 mg Documented by: FER Metformin HCl (Metformin 500 Mg Tab) 500 mg PO DAILY [facility] Last Admin: 06/13/20 08:56 Dose: 500 mg Documented by: NAAIS Ondansetron HCl (Ondansetron 4 Mg/2 Ml Sdv) 4 mg IVPUSH Q6H PRN PRN Reason: Nausea/Vomiting Oxycodone/Acetaminophen (Acetaminophen/Oxycodone 325-5 Mg Tab) 2 tab PO Q4H PRN PRN Reason: Pain (moderate 4-6) Last Admin: 06/13/20 08:56 Dose: 2 tab Documented by: Admin: 06/13/20 03:40 Dose: 2 tab Documented by: Admin: 06/12/20 21:30 Dose: 1 tab Documented by: Admin: 06/12/20 20:47 Dose: 2 tab Documented by: LILIAN Sodium Chloride (Sodium Chloride 0.9% 2.5 Ml Syringe) 2.5 ml FLUSH ASDIRECTED PRN PRN Reason: Keep Vein Open Last Admin: 06/13/20 09:03 Dose: 2.5 ml Documented by: ANAIS Sodium Chloride (Sodium Chloride 0.9% 10 Ml Sdv) 10 ml IV ASDIRECTED PRN PRN Reason: IV Use Sodium Chloride (Sodium Chloride 0.9% 10 Ml Syringe) 10 ml FLUSH ASDIRECTED PRN PRN Reason: Keep Vein Open - Plan Plan (Free Text/Narrative):: Patient's hemoglobin did drop 1 g which is expected with her intraoperative blood loss. Her liver function tests all appear normal this morning. Her drain had 110 mils of serosanguineous output overnight. The output appears nonbilious. The drain was then removed this morning. I gave the patient discharge instructions. She should be able to go home today. Follow-up as previously scheduled.
[2020-06-13] MEDS ORDERED: Enoxaparin 40 MG/0.4 ML Syringe SUBCUT SCH (11:15)
== END 2020-06-13 10:53 | disposition home or self-care (01) ==
LOC: MW.SDS 10:10 → MW.MS 17:07 → MW.SDS 06-13 10:53
PROVIDERS: ATTEND Surgery
DX: K80.12 Calculus of gallbladder with acute and chronic cholecystitis without obstruction (principal); K66.0 Peritoneal adhesions (postprocedural) (postinfection); E11.9 Type 2 diabetes mellitus without complications; I10 Essential (primary) hypertension; F17.210 Nicotine dependence, cigarettes, uncomplicated; E66.9 Obesity, unspecified; Z86.73 Personal history of transient ischemic attack (TIA), and cerebral infarction without residual deficits; Z79.84 Long term (current) use of oral hypoglycemic drugs; Z98.890 Other specified postprocedural states
CPT/HCPCS: 36415; 47562; 80053; 81025; 85014; 85018; 85025; 85027; 86850; 86900; 86901; A9270; J0690; J1100; J1885; J2250; J2704; J3010; J3490; J7120; 00790; J0330; J1170; J2405

== ENCOUNTER 2020-08-02 12:27 | Emergency (ER) | payer MEDICAID ==
--- NOTE | 2020-08-02 12:54 | EDM.PDOC ---
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 Patient reports that she has a history of protein as deficiency. Patient reports that she had a stroke and had been placed on Xarelto since her stroke. Patient reports that she started having episodes of increased vaginal bleeding and therefore she had her Xarelto discontinued following a D&C. Patient reports that her increased vaginal bleeding had significantly improved at that time. Patient reports that approximately 2 months ago she had a cholecystectomy performed and she was started on Lovenox injections which she took for approximately 1 month to prevent clot formation post surgical procedure. Patient reports that over the last 2-month she has had vaginal bleeding of approximately 1 tampon daily. Patient reports that she was instructed to stop her Lovenox shots approximately 1 month ago and was reassured that her bleeding would stop at that time. Patient reports that since she stopped her Lovenox she is still having approximately 1 tampon per day of vaginal bleeding and she is here for further evaluation about that. Patient reports no fevers, shakes, chills, nausea, vomiting, diarrhea, dysuria, frequency, urgency, chest pain, shortness of breath, dizziness. Patient reports history of hypertension, diabetes, stroke in the past. Patient denies any history of liver, lung, kidney problems in the past. Patient reports that she has been requested to get hysterectomy secondary to her vaginal bleeding but they have not approved for her. Patient reports that she has no children and has no intention of having any children in the future. Review of systems: As per history of present illness and below otherwise all systems reviewed and negative. Past medical history: As per history of present illness and as reviewed below otherwise noncontributory. Surgical history: As per history of present illness and as reviewed below otherwise noncontributory. Social history: No reported history of drug abuse. Family history: As per history of present illness and as reviewed below otherwise noncontributory. Physical exam: This patient was seen and evaluated during the 2019 SARS-CoV-2 novel coronavirus pandemic period. Community viral transmission is ongoing at time of this encounter and the emergency department is operating under pandemic response procedures. Constitutional: Patient is oriented to person, place, and time. Appears well- developed and well-nourished. No distress. HEENT: Moist mucous membranes Head: Normocephalic and atraumatic Eyes: Right eye exhibits no discharge. Left eye exhibits no discharge. No scleral icterus Neck: Normal range of motion. No tracheal deviation present. Cardiovascular: Normal rate and regular rhythm. Pulmonary: Effort normal, no respiratory distress. Abdominal: No distention Musculoskeletal: Normal range of motion Neurologic: Alert and oriented to person, place and time. Skin: [place], warm and dry. Psychiatric: Normal mood and affect. Behavior is normal. Judgment and thought content normal. Nursing note and vital signs have been reviewed Pelvic exam: Patient refused pelvic exam here in the ED and reports that she has an appointment early next week with her primary care physician and will prefer to have her PCP do that for her. Patient reports that her bleeding right now is minimal and she would prefer no pelvic exam at this time. Diagnostics: [] Therapeutics: [] Assessment and plan: 30-year-old female with abnormal vaginal bleeding for approximately 2-month. Patient had been on anticoagulation therapy up until 1 month ago and was hoping that her bleeding would have stopped. Patient presents ER today hoping that th ere is a shot that she can receive to stop the bleeding so that she can go to the [facility] tomorrow without having to use a tampon. 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 Given that the patient has stable vital signs and she is not excessive bleeding I feel that the patient is stable for continued appropriate outpatient follow-up and not on an emergent basis. Reassessment at the time of disposition demonstrates that the patient is in no acute distress. The patient has remained stable throughout the entire ED visit and is without objective evidence for acute process requiring urgent intervention or hospitalization. The patient is stable for discharge, counseling is provided as documented above, discussed symptomatic treatment and specific conditions for return. I have spoken with the patient/caregiver and discussed todays findings, in addition to providing specific details for the plan of care. Questions are answered and there is agreement with the plan. Definitive disposition and diagnosis as appropriate pending reevaluation and review of above. - Related Data Allergies Allergy/AdvReac Type Severity Reaction Status Date / Time No Known Allergies Allergy Verified 08/02/20 12:46 Home Meds: Home Meds atorvaSTATin [Lipitor] 80 mg PO DAILY 07/19/19 [History] amLODIPine Besylate [Amlodipine Besylate] 10 mg PO DAILY 04/08/20 [History] metFORMIN HCl [Metformin HCl] 500 mg PO DAILY 06/06/20 [History] Past Medical History - Past Health History Medical/Surgical History: Denies Medical/Surgical History HEENT History: Reports: None Cardiovascular History: Reports: High Cholesterol, Hypertension Respiratory History: Reports: None Gastrointestinal History: Reports: Cholelithiasis Genitourinary History: Reports: None EXTRUSION ENGINEER History: Reports: None Musculoskeletal History: Reports: None Neurological History: Reports: CVA, Migraines, Other (See Below) Other Neuro History: migraines in the past, "mini stroke 1 year ago" , have been off blood thinners since 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 Communication: None Hematologic History: Reports: Blood Transfusion(s), Other (See Below) Other Hematologic History: Protein S deficiency Immunologic History: Reports: None Oncologic (Cancer) History: Reports: None Dermatologic History: Reports: None - Infectious Disease History Infectious Disease History: Reports: Chicken Pox - Past Surgical History Female Surgical History: Reports: Other (See Below) Other Female Surgeries/Procedures: hysteroscopy with D&C - Mar 2020 Social & Family History - Family History Family Medical History: No Pertinent Family History - Caffeine Use Caffeine Use: Reports: Coffee, Soda - Living Situation & Occupation Living situation: Reports: with Significant Other Occupation: Employed ED ROS GENERAL - Review of Systems Review Of Systems: See Below ED EXAM, GENERAL - Physical Exam Exam: See Below Departure - Departure Time of Disposition: 12:53 Disposition: Home, Self-Care 01 Condition: Good Clinical Impression: Abnormal vaginal bleeding - Discharge Information Instructions: Abnormal Uterine Bleeding Referrals: Alma Delia Weller NP [Primary Care Provider] - Forms: ED Department Discharge Additional Instructions: Please make an appointment with your OB doctor for further recommendations and evaluation as to the cause of your increased vaginal bleeding. Return to the ER if you start experiencing any weakness, dizziness or any other new or concerning symptoms. The following information is given to patients seen in the emergency department who are being discharged to home. This information is to outline your options for follow-up care. We provide all patients seen in our emergency department with a follow-up referral. The need for follow-up, as well as the timing and circumstances, are variable depending upon the specifics of your emergency department visit. If you don't have a primary care physician on staff, we will provide you with a referral. We always advise you to contact your personal physician following an emergency department visit to inform them of the circumstance of the visit and for follow-up with them and/or the need for any referrals to a consulting specialist. The emergency department will also refer you to a specialist when appropriate. This referral assures that you have the opportunity for follow-up care with a specialist. All of these measure are taken in an effort to provide you with optimal care, which includes your follow-up. Under all circumstances we always encourage you to contact your private physician who remains a resource for coordinating your care. When calling for follow-up care, please make the office aware that this follow-up is from your recent emergency room visit. If for any reason you are refused follow-up, please contact the [facility] Emergency Department at and asked to speak to the emergency department charge nurse. [facility] [address] [place] [id number] [id number]
== END 2020-08-02 13:10 | disposition home or self-care (01) ==
LOC: MW.ED 12:27
DX: N93.9 Abnormal uterine and vaginal bleeding, unspecified (principal); E78.00 Pure hypercholesterolemia, unspecified; I10 Essential (primary) hypertension; E11.9 Type 2 diabetes mellitus without complications; Z79.84 Long term (current) use of oral hypoglycemic drugs; Z79.899 Other long term (current) drug therapy
CPT/HCPCS: 99283

== ENCOUNTER 2023-04-14 06:36 | Day surgery (SDC) | payer BC ==
[~2023-04-14 06:36] MED LIST changes: -Sodium Chloride 0.9% 10 ML SDV IV PRN; +Sodium Chloride 0.9% 2.5 ML Syringe FLUSH PRN; +Sodium Chloride 0.9% 20 ML SDV IV PRN; -ceFAZolin 2 GM in Premix Bag 1 BAG IV ONE; +ceFAZolin 2 GM in Sodium Chloride 0.9% 50 ML IV ONE
[2023-04-14] MEDS: Lactated Ringers 1,000 ML IV SCH (07:05)
[2023-04-14] MEDS ORDERED: Ondansetron 4 MG/2 ML SDV IVPUSH PRN (07:06)
[2023-04-14] MEDS ORDERED: HYDROmorphone 1 MG/ML Syringe IVPUSH PRN (07:06)
[2023-04-14] MEDS ORDERED: droPERidol 5 MG/2 ML SDV IVPUSH PRN (07:06)
[2023-04-14] MEDS ORDERED: Morphine 2 MG/ML SYRINGE IVPUSH PRN (07:06)
[2023-04-14] MEDS ORDERED: Metoclopramide 10 MG/2 ML SDV IVPUSH PRN (07:06)
[2023-04-14] MEDS ORDERED: Albuterol 0.083% 2.5 MG/3 ML Neb Soln NEB PRN (07:06)
[2023-04-14] MEDS ORDERED: Naloxone 0.4 MG/ML SDV IVPUSH PRN (07:06)
[2023-04-14] MEDS ORDERED: fentaNYL 250 MCG/5 ML SDV ONE (07:07)
[2023-04-14] MEDS ORDERED: Propofol 200 MG/20 ML SDV ONE (07:07)
[2023-04-14] MEDS ORDERED: Midazolam 1 MG/ML 2 ML SDV ONE (07:07)
[2023-04-14] MEDS ORDERED: Dexamethasone 4 MG/ML 5 ML MDV ONE (07:09)
[2023-04-14] MEDS ORDERED: Bupivacaine 0.5% 30 ML SDV ONE (07:10)
[2023-04-14] MEDS ORDERED: Ketorolac 30 MG/ML SDV ONE (07:12)
[2023-04-14] MEDS ORDERED: Water For Injection, Sterile 20 ML ONE (07:12)
[2023-04-14] MEDS ORDERED: Bupivacaine 0.5%/EPINEPHrine 1:200,000 30 ML SDV ONE (07:34)
[2023-04-14] MEDS ORDERED: Succinylcholine/Sod PF 100 MG/5 ML SYRINGE IV ONE (07:34)
[2023-04-14] MEDS ORDERED: Rocuronium Bromide 50 MG/5 ML Syringe ONE (07:34)
[2023-04-14] MEDS ORDERED: Bupivacaine 0.25% 10 ML SDV ONE (07:34)
[2023-04-14] MEDS ORDERED: ceFAZolin 1 GM Vial ONE (07:57)
[2023-04-14] MEDS ORDERED: Sugammadex Sodium 200 MG/2 ML VIAL IV ONE (08:46)
[2023-04-14] MEDS: fentaNYL 50 MCG/ML SDV IVPUSH PRN (09:49)
== END 2023-04-14 11:05 | disposition home or self-care (01) ==
LOC: MW.SDS 06:36
PROVIDERS: ATTEND Surgery
DX: K43.6 Other and unspecified ventral hernia with obstruction, without gangrene (principal); K42.9 Umbilical hernia without obstruction or gangrene; I10 Essential (primary) hypertension; E11.9 Type 2 diabetes mellitus without complications; E66.9 Obesity, unspecified; Z68.34 Body mass index [BMI] 34.0-34.9, adult; E78.00 Pure hypercholesterolemia, unspecified; Z86.16 Personal history of COVID-19; Z98.51 Tubal ligation status; Z90.49 Acquired absence of other specified parts of digestive tract; Z79.84 Long term (current) use of oral hypoglycemic drugs; Z79.899 Other long term (current) drug therapy
CPT/HCPCS: 49592; 64486; 82947; C1781; J0131; J0330; J0665; J0690; J1100; J1885; J2250; J2704; J3010; J3490; J7120

== ENCOUNTER 2023-12-03 13:01 | Emergency (ER) | payer BC ==
[2023-12-03] MEDS: Acetaminophen/HYDROcodone 325-5 MG Tab PO ONE (13:34)
== END 2023-12-03 15:08 | disposition home or self-care (01) ==
LOC: MW.ED 13:01
DX: S52.121A Displaced fracture of head of right radius, initial encounter for closed fracture (principal); E78.00 Pure hypercholesterolemia, unspecified; I10 Essential (primary) hypertension; E11.9 Type 2 diabetes mellitus without complications; E66.9 Obesity, unspecified; Z68.29 Body mass index [BMI] 29.0-29.9, adult; Z90.49 Acquired absence of other specified parts of digestive tract; Z79.84 Long term (current) use of oral hypoglycemic drugs; Z79.899 Other long term (current) drug therapy; Z86.73 Personal history of transient ischemic attack (TIA), and cerebral infarction without residual deficits; Z75.8 Other problems related to medical facilities and other health care; W01.0XXA Fall on same level from slipping, tripping and stumbling without subsequent striking against object, initial encounter
CPT/HCPCS: 73090; 99283; A9270